=== PATIENT | male | born 1945 | race Caucasian/White ===

== ENCOUNTER 2020-03-01 19:15 | Observation (INO) | payer MEDICARE, OTHER ==
[2020-03-01] MEDS ORDERED: Sodium Chloride 0.9% 1,000 ML IV SCH (20:00)
--- NOTE | 2020-03-01 20:00 | EDM.PDOC ---
ED HPI GENERAL MEDICAL PROBLEM - General Chief Complaint: Gastrointestinal Problem Stated Complaint: BLOOD IN STOOL Time Seen by Provider: 03/01/20 19:26 Source of Information: Reports: Patient History Limitations: Reports: No Limitations - History of Present Illness INITIAL COMMENTS - FREE TEXT/NARRATIVE: Mr. Okeefe is a very pleasant 74-year-old gentleman with a past medical history significant for occasional GERD, treated with baking soda, and colon polyps, who now presents to the ED stating that he was awoken with sharp suprapubic abdominal pain last night. The pain was recurrent, lasting for about 7 to 8 minutes, then recur about every hour while he was in bed, however, he did not have any pain during the day today. When he went to lay down tonight, he again developed the same pain. He also reports that he had loose stools yesterday, although not exactly watery diarrhea. He then noticed some relatively bright blood on 2 small bowel movements tonight. No prior similar symptoms. The patient states that he underwent a colonoscopy about 1 month ago, finding colon polyps, but he does not recall being told anything about diverticuli. Here in the ED, the patient is found to be hemodynamically stable, afebrile, saturating 97% on room air. Other than the abdominal complaints, the patient denies recent fever, chills, sore throat, ear pain, nasal or sinus congestion, cough, dyspnea, chest pain, palpitations, nausea, vomiting, constipation, diarrhea, urinary symptoms, recent weight gain or weight loss, recent black bowel movements, recent joint aches, he adaches, or rashes. The patient last ate around 17:30 tonight. The patient's PCP is AJ Lopez. His colonoscopy was performed by Dr. Sam Benjamin. Abdomen Pain Score (Numeric/FACES): 2 - Related Data Allergies Allergy/AdvReac Type Severity Reaction Status Date / Time tomato Allergy Swelling Verified 03/01/20 19:36 tree nut Allergy Swelling Verified 03/01/20 19:36 berries Allergy Mouth Sores Uncoded 03/01/20 19:36 Home Meds: Home Meds . [Unable to Verify Home Med List] 03/01/20 [History] Past Medical History HEENT History: Reports: Impaired Vision (wears glasses) Cardiovascular History: Reports: High Cholesterol, Hypertension Gastrointestinal History: Reports: Colon Polyp, GERD (occasional) Musculoskeletal History: Reports: Osteoarthritis (fingers) Endocrine/Metabolic History: Reports: Other (See Below) (Prediabetes) - Past Surgical History HEENT Surgical History: Reports: Oral Surgery (wisdom teethe extraction 1972 or ) GI Surgical History: Reports: Appendectomy (1960), Colonoscopy (x 1), Other (See Below) (Hemorrhoidectomy 1961) Neurological Surgical History: Reports: Lumbar Spine (laminactomy x 2) Social & Family History - Tobacco Use Smoking Status *Q: Former Smoker Years of Tobacco use: 57 Packs/Tins Daily: 2 Month/Year Tobacco Last Used: Quit Sep 2019 - Alcohol Use Date/Time of Last Drink Comment: Alcoholic - sober since 1982 - Recreational Drug Use Recreational Drug Use: No - Living Situation & Occupation Living situation: Reports: , with Spouse 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 ED EXAM, GI/ABD - Physical Exam Exam: See Below Exam Limited By: No Limitations General Appearance: Alert, WD/WN, No Apparent Distress Eyes: Bilateral: Normal Appearance, EOMI Ears: Normal External Exam, Hearing Grossly Normal Nose: Normal Inspection Throat/Mouth: Normal Inspection, Normal Lips, Normal Voice, No Airway Compromise Head: Atraumatic, Normocephalic Neck: Normal Inspection, Full Range of Motion Respiratory/Chest: No Respiratory Distress, Lungs Clear, Normal Breath Sounds, No Accessory Muscle Use Cardiovascular: Normal Peripheral Pulses, Regular Rate, Rhythm, No Edema, No Gallop, No JVD, No Murmur, No Rub GI/Abdominal Exam: Normal Bowel Sounds, Soft, No Organomegaly, No Distention, No Abnormal Bruit, No Mass, Tender (Left side only. Nontender elsewhere, including suprapubically) (Male) Exam: Deferred Rectal (Males) Exam: Deferred Back Exam: Normal Inspection, Full Range of Motion. No: CVA Tenderness (L), CVA Tenderness (R) Extremities: Normal Inspection, Normal Range of Motion, No Pedal Edema, Normal Capillary Refill Neurological: Alert, Oriented, Normal Cognition, No Motor/Sensory Deficits Psychiatric: Normal Affect Skin Exam: Warm, Dry, Intact, Normal Color, No Rash Course - Vital Signs Last Recorded V/S: Last Vital Signs Temp 37.1 C 03/01/20 19:30 Pulse 92 03/01/20 19:30 Resp 16 03/01/20 19:30 BP 133/69 03/01/20 19:30 Pulse Ox 97 03/01/20 19:30 - Orders/Labs/Meds Orders: Active Orders 24 hr Category Date Time Status Patient Status [ADT] Routine ADT 03/01/20 22:41 Active Hemoccult [Fecal Occult Blood Collection] [RC] Care 03/01/20 20:10 Active ASDIRECTED Lactated Ringers @ 125 MLS/HR(1000ml Bag) Med 03/01/20 22:45 Ordered Lactated Ringers [Ringers, Lactated] 1,000 ml IV ASDIRECTED Levofloxacin/Dextrose 5%-Water [Levaquin in D5W 750 MG/ Med 03/01/20 22:30 Ordered 150 ML] 750 mg Premix Bag 1 bag IV ONETIME metroNIDAZOLE/Normal Saline [Flagyl 500 MG in NS 100 ML Med 03/01/20 22:32 Ordered ] 500 mg Premix Bag 1 bag IV ONETIME Medication Orders Levofloxacin/Dextrose 750 mg/ (Premix) 150 mls @ 100 mls/hr IV ONETIME STA Stop: 03/01/20 23:59 Metronidazole 500 mg/ Premix 100 mls @ 100 mls/hr IV ONETIME STA Stop: 03/01/20 23:31 Lactated Ringer's (Ringers, Lactated) 1,000 mls @ 125 mls/hr IV ASDIRECTED [facility] Labs: Laboratory Tests 03/01/20 03/01/20 Range/Units 20:00 20:00 WBC 14.55 H (4.23-9.07) K/mm3 RBC 4.32 L (4.63-6.08) M/mm3 Hgb 12.9 L (13.7-17.5) gm/dl Hct 40.1 (40.1-51.0) % MCV 92.8 H (79.0-92.2) fl MCH 29.9 (25.7-32.2) pg MCHC 32.2 (32.2-35.5) g/dl RDW Std Deviation 46.7 H (35.1-43.9) fL Plt Count 338 H (163-337) K/mm3 MPV 10.0 (9.4-12.3) fl Neutrophils % (Manual) 64 H (40-60) % Band Neutrophils % 0 (0-10) % Lymphocytes % (Manual) 27 (20-40) % Atypical Lymphs % 0 % Monocytes % (Manual) 7 (2-10) % Eosinophils % (Manual) 2 (0.8-7.0) % Basophils % (Manual) 0 L (0.2-1.2) Platelet Estimate Adequate Plt Morphology Comment Normal RBC Morph Comment Normal Sodium 140 (136-145) mEq/L Potassium 3.9 (3.5-5.1) mEq/L Chloride 103 (98-107) mEq/L Carbon Dioxide 29 (21-32) mEq/L Anion Gap 11.9 (5-15) BUN 27 H (7-18) mg/dL Creatinine 1.4 H (0.7-1.3) mg/dL Est Cr Clr Drug Dosing 51.52 mL/min Estimated GFR (MDRD) 49 (>60) mL/min BUN/Creatinine Ratio 19.3 H (14-18) Glucose 134 H (83-115) mg/dL Calcium 9.6 (8.5-10.1) mg/dL Total Bilirubin 0.3 (0.2-1.0) mg/dL AST 14 L (15-37) U/L ALT 30 (16-63) U/L Alkaline Phosphatase 70 (46-116) U/L Total Protein 7.0 (6.4-8.2) g/dl Albumin 3.2 L (3.4-5.0) g/dl Globulin 3.8 gm/dL Albumin/Globulin Ratio 0.8 L (1-2) Meds: Medications Generic Name Dose Route Start Last Admin Trade Name Freq PRN Reason Stop Dose Admin Levofloxacin/Dextrose 750 mg/ 150 mls @ 100 mls/hr 03/01/20 22:30 Premix IV 03/01/20 23:59 ONETIME STA Metronidazole 500 mg/ Premix 100 mls @ 100 mls/hr 03/01/20 22:32 IV 03/01/20 23:31 ONETIME STA Lactated Ringer's 1,000 mls @ 125 mls/hr 03/01/20 22:45 Ringers, Lactated IV ASDIRECTED CARLOS Discontinued Medications Generic Name Dose Route Start Last Admin Trade Name Freq PRN Reason Stop Dose Admin Diatrizoate Meglum/Diatrizoate Sod 40 ml 03/01/20 20:13 03/01/20 21:47 Gastrografin 37% PO 03/01/20 20:14 40 ml ONETIME ONE Administration Hydromorphone HCl 0.5 mg 03/01/20 21:26 03/01/20 21:48 Dilaudid IVPUSH 03/01/20 21:27 0.5 mg ONETIME ONE Administration Sodium Chloride 1,000 mls @ 150 mls/hr 03/01/20 20:00 03/01/20 20:05 Normal Saline IV 150 mls/hr ASDIRECTED CARLOS Administration Iopamidol 100 ml 03/01/20 21:31 03/01/20 21:47 Isovue-300 (61%) IVPUSH 03/01/20 21:32 100 ml ONETIME ONE Administration Ondansetron HCl 4 mg 03/01/20 21:27 03/01/20 21:47 Zofran IVPUSH 03/01/20 21:28 4 mg ONETIME ONE Administration - Re-Assessments/Exams Free Text/Narrative Re-Assessment/Exam: 03/01/20 19:57 As above, the patient had intermittent lower abdominal pain last night, then again tonight, along with bright red blood per rectum tonight. On abdominal exam, he has tenderness to his entire left abdomen, but is completely nontender elsewhere, including the suprapubic region. On rectal exam, he has currant-jam colored stool that is grossly heme positive. I am most concerned about ischemic colitis, although acute diverticulitis is possible as well, therefore I recommended a work-up that includes blood work and a CT of his abdomen and pelvis with oral and IV contrast. The patient agreed. In the meantime, the patient will be given IV fluid, however, he declined an offer for both pain medication and anti-nausea medicine. 03/01/20 21:27 Notified by Alondra VALENCIA that the patient requested pain medication. I have ordered Dilaudid 0.5 mg IVP plus Zofran 4 mg IVP. 03/01/20 21:31 The patient's CBC is remarkable for a WBC count elevated at 14.55, but with 0% bandemia. His Hgb is slightly depressed at 12.9, with a Hct normal at 40.1. His platelets are slightly elevated at 338,000, with the remainder of his CBC being unremarkable. His CMP is remarkable for a BUN/Cr elevated at 27/1.4, and a blood glucose mildly elevated at 134, with the remainder of his CMP being unremarkable. No prior CMP is available for comparison. 03/01/20 22:23 CT of the abdomen and pelvis with oral and IV contrast as read by Dr. Ulloa as: 1. Mild bowel wall thickening within portions of the descending and sigmoid regions having the appearance of a nonspecific colitis rather than diverticulitis. 2. Other findings believed to be nonacute as described above. 03/01/20 22:28 Test results discussed with the patient. I am concerned that the patient's colitis may be ischemic colitis. I recommended broad spectrum IV antibiotics, IV fluids, and placement into observation. The Hospitalist can then consider consulting the surgeon in the morning. The patient agreed. I will therefore start him on IV levofloxacin and IV metronidazole. I will write bridge orders. Departure - Departure Time of Disposition: 22:29 Disposition: Refer to Observation Condition: Good Clinical Impression: Colitis, Renal insufficiency - Discharge Information *PRESCRIPTION DRUG MONITORING PROGRAM REVIEWED*: Not Applicable *COPY OF PRESCRIPTION DRUG MONITORING REPORT IN PATIENT ROE: Not Applicable Referrals: Beverley Evangelista PA-C [Primary Care Provider] - Sam Benjamin MD [Physician] - Forms: ED Department Discharge Sepsis Event Note (ED) - Evaluation Sepsis Screening Result: No Definite Risk - Focused Exam Vital Signs: Vital Signs Temp Pulse Resp BP Pulse Ox 03/01/20 19:30 37.1 C 92 16 133/69 97 - My Orders Last 24 Hours: My Active Orders 03/01/20 20:10 Hemoccult [Fecal Occult Blood Collection] [RC] ASDIRECTED 03/01/20 22:30 Levofloxacin/Dextrose 5%-Water [Levaquin in D5W 750 MG/150 ML] 750 mg Premix Bag 1 bag IV ONETIME 03/01/20 22:32 metroNIDAZOLE/Normal Saline [Flagyl 500 MG in NS 100 ML] 500 mg Premix Bag 1 bag IV ONETIME 03/01/20 22:41 Patient Status [ADT] Routine 03/01/20 22:45 Lactated Ringers @ 125 MLS/HR(1000ml Bag) Lactated Ringers [Ringers, Lactated] 1,000 ml IV ASDIRECTED - Assessment/Plan Last 24 Hours: My Active Orders 03/01/20 20:10 Hemoccult [Fecal Occult Blood Collection] [RC] ASDIRECTED 03/01/20 22:30 Levofloxacin/Dextrose 5%-Water [Levaquin in D5W 750 MG/150 ML] 750 mg Premix Bag 1 bag IV ONETIME 03/01/20 22:32 metroNIDAZOLE/Normal Saline [Flagyl 500 MG in NS 100 ML] 500 mg Premix Bag 1 bag IV ONETIME 03/01/20 22:41 Patient Status [ADT] Routine 03/01/20 22:45 Lactated Ringers @ 125 MLS/HR(1000ml Bag) Lactated Ringers [Ringers, Lactated] 1,000 ml IV ASDIRECTED
[2020-03-01] MEDS ORDERED: Diatrizoate Meglumine/Diatrizoate Sodium 37% 120 ML Bottle PO ONE (20:13)
[2020-03-01] MEDS ORDERED: HYDROmorphone 0.5 MG/0.5 ML Syringe IVPUSH ONE (21:26)
[2020-03-01] MEDS ORDERED: Ondansetron 4 MG/2 ML SDV IVPUSH ONE (21:27)
[2020-03-01] MEDS ORDERED: Iopamidol 612 MG/ML 100 ML Bottle IVPUSH ONE (21:31)
--- NOTE | 2020-03-01 22:06 | CT ---
CT abdomen and pelvis Technique: Multiple axial sections were obtained from above the dome of the diaphragm inferiorly to the pubic symphysis. Intravenous and oral contrast was utilized. Reconstructed coronal and sagittal images were obtained. Delayed images were also obtained through the pelvis. Findings: Bowel wall thickening is seen within the sigmoid and portions of the descending colon. Findings have the appearance of a colitis rather than definite diverticulitis. Visualized lung bases show nothing acute. Small hiatal hernia is seen. Liver contains no focal abnormality. Gallbladder contains no calcified gallstones. Spleen appears normal. Adrenal glands show no nodule. Kidneys show symmetric contrast enhancement without hydronephrosis or mass. Very minimal cortical lesion is seen within the upper right kidney which is too small to characterize by Hounsfield measurements but most likely represents a minimal cyst. Pancreas appears within normal limits. Aorta shows mild atherosclerotic calcification without aneurysm. No retroperitoneal adenopathy or mesenteric abnormalities are seen. Appendix is not visualized with certainty. No free fluid or inflammatory change is seen. Small bilateral fat-containing inguinal hernias are noted. Delayed images shows contrast within the distal ureters as well as within the bladder. 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 Other mild scattered degenerative change seen throughout other portions of the spine. Impression: 1. Mild bowel wall thickening within portions of the descending and sigmoid regions having the appearance of a nonspecific colitis rather than diverticulitis. 2. Other findings believed to be nonacute as described above. Diagnostic code #3 Study was dictated in MDT
[2020-03-01] MEDS ORDERED: Levofloxacin/Dextrose 5%-Water 750 MG in Premix Bag 1 BAG IV STA (22:30)
[2020-03-01] MEDS ORDERED: metroNIDAZOLE/Normal Saline 500 MG in Premix Bag 1 BAG IV STA (22:32)
[2020-03-01] MEDS ORDERED: Ondansetron 4 MG/2 ML SDV IVPUSH PRN (23:43)
[2020-03-01] MEDS ORDERED: HYDROmorphone 0.5 MG/0.5 ML Syringe IVPUSH PRN (23:47)
[2020-03-02] MEDS: Lactated Ringers 1,000 ML IV SCH ×2 (00:07→11:01)
[2020-03-02] MEDS ORDERED: metroNIDAZOLE/Normal Saline 500 MG in Premix Bag 1 BAG IV SCH (08:00)
--- NOTE | 2020-03-02 09:02 | PCM.HP.2 ---
H&P History of Present Illness - General Date of Service: 03/02/20 Admit Problem/Dx: Admission Diagnosis/Problem Admission Diagnosis/Problem Colitis Source of Information: Patient, Old Records, Provider, RN, RN Notes Reviewed History Limitations: Reports: No Limitations - History of Present Illness Initial Comments - Free Text/Narative: Lawrence Okeefe is a 74 yo male who presented to our ED on 03/01/2020 with complaints of blood in his stool. Per his report he woke with sudden suprapubic abdominal pain which would last 7 to 8 minutes, then resolve. It would then recur about an hour later. This resolved during the day and returned again at bedtime. He reports loose stools with some bright red blood on 2 small bowel movements. No prior similar symptoms. Reports he had a colonoscopy about 1 month prior with colon polyps but does not recall anything abnormal or any diverticuli. Has any recent fever, chills, sore throat, eye or ear pain, cough, dyspnea, chest pain, palpitations, nausea, vomiting, constipation, diarrhea, urinary symptoms, recent weight gain or loss, melena, achy joints, headaches, or rashes. In the ED he was afebrile with a pulse of 92, respirations 16, blood pressure 133/69, pulse ox 97%. Labs were obtained showing mild leukocytosis but no bandemia. Hemoglobin is only slightly low at 12.9. He was noted to have tenderness to his left abdomen. Rectal exam was performed showing current jam colored stool that was grossly heme positive. Was given Dilaudid for pain and Zofran for nausea. He of the abdomen and pelvis is obtained and interpreted by Dr. Preciado as "1. Mild bowel wall thickening within portions the descending and sigmoid regions having the appearance of a nonspecific colitis rather than diverticulitis. 2. Other findings believed to be nonacute as described abov3. On IV Levaquin and metronidazole and admitted to the hospital floor. He carries a history of HLD, HTN, occasional GERD, colon polyps, osteoarthritis , "pre-diabetes", history of ETOH abuse - sober since 1982. He is a former smoker who quit in September 2019. He subsequently admitted to the medical floor observation status for management of his colitis. His PCP is JOAO Lopez. Abdomen Pain Score (Numeric/FACES): 2 - Related Data Allergies/Adverse Reactions: Allergies Allergy/AdvReac Type Severity Reaction Status Date / Time tomato Allergy Swelling Verified 03/01/20 19:36 tree nut Allergy Swelling Verified 03/01/20 23:11 berries Allergy Mouth Sores Uncoded 03/01/20 19:36 Home Medications: Home Meds Ascorbic Acid [Vitamin C] 1,000 mg PO DAILY 03/01/20 [History] Cetirizine HCl/Pseudoephedrine [Zyrtec-D Tablet] 1 tab PO BID 03/01/20 [History] Tamsulosin HCl [Flomax] 0.4 mg PO DAILY 03/01/20 [History] Orphenadrine [Norflex] 100 mg PO BID 03/02/20 [History] Simvastatin 5 mg PO DAILY 03/02/20 [History] amLODIPine [Norvasc] 10 mg PO DAILY 03/02/20 [History] metFORMIN HCl [Metformin HCl ER] 1,000 mg PO DAILY 03/02/20 [History] Past Medical History HEENT History: Reports: Impaired Vision Cardiovascular History: Reports: High Cholesterol, Hypertension Gastrointestinal History: Reports: Colon Polyp, GERD, Hemorrhoids Other Genitourinary History: Urinary Retention. Musculoskeletal History: Reports: Osteoarthritis Other Musculoskeletal History: Back Surgery: cyst removal and bone spur X1 week ago. Open sciatic area by nerve. Endocrine/Metabolic History: Reports: Other (See Below) Other Endocrine/Metabolic History: Prediabetes. Other Dermatologic History: Upper back previous removal site in grown hair. - Past Surgical History HEENT Surgical History: Reports: Oral Surgery Other HEENT Surgeries/Procedures: Saliva gland removed on right side. 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 Denies: Fever, Chills, Malaise, Weakness, Fatigue HEENT: Reports: No Symptoms. Denies: Headaches, Sore Throat Pulmonary: Reports: No Symptoms. Denies: Shortness of Breath, Wheezing, Pleuritic Chest Pain, Cough, Sputum Cardiovascular: Reports: No Symptoms. Denies: Chest Pain, Palpitations, Dyspnea on Exertion, Edema Gastrointestinal: Reports: Abdominal Pain (Left sided ), Bloody Stool, Vomiting (overnight ). Denies: Black Stool, Constipation, Diarrhea, Nausea Genitourinary: Reports: No Symptoms. Denies: Pain Musculoskeletal: Reports: Joint Pain Skin: Reports: Wound (Bilateral abrasions on knees - worse on left with scab over wound. ). Denies: Cyanosis Psychiatric: Reports: No Symptoms. Denies: Confusion Neurological: Reports: No Symptoms. Denies: Difficulty Walking, Gait Disturbance Hematologic/Lymphatic: Reports: No Symptoms Immunologic: Reports: No Symptoms Exam - Exam Exam: See Below - Vital Signs Vital Signs: Last Vital Signs Temp 98.2 F 03/02/20 08:11 Pulse 78 03/02/20 08:11 Resp 20 03/02/20 08:11 BP 145/80 H 03/02/20 08:11 Pulse Ox 96 03/02/20 08:11 Weight: 216 lb 12.8 oz - Exam Quality Assessment: DVT Prophylaxis General: Alert, Oriented, Cooperative. No: Mild Distress HEENT: Conjunctiva Clear, EACs Clear, Mucosa Moist & [place] Neck: Supple, Trachea Midline Lungs: Clear to Auscultation, Normal Respiratory Effort Cardiovascular: Regular Rate, Regular Rhythm GI/Abdominal Exam: Normal Bowel Sounds, Soft, No Organomegaly, No Distention, Rebound, Tender (On left upper and lower quadrants ) (Male) Exam: Deferred Rectal (Males) Exam: Deferred, Other (Heme positive rectal exam in ED ) Back Exam: Normal Inspection, Full Range of Motion Extremities: Normal Range of Motion, Non-Tender, No Pedal Edema, Normal Capillary Refill, Other (Bilateral abrasions on knees. Scab on left knee with no signs of inflammation. ) Skin: Warm, Dry, Intact Neurological: Cranial Nerves Intact (Grossly ) Neuro Extensive - Mental Status: Alert, Oriented x3 - Patient Data Lab Results Last 24 hrs: Laboratory Results - last 24 hr 03/01/20 03/01/20 03/02/20 Range/Units 20:00 20:00 05:12 WBC 14.55 H 11.23 H (4.23-9.07) K/mm3 RBC 4.32 L 4.36 L (4.63-6.08) M/mm3 Hgb 12.9 L 13.0 L (13.7-17.5) gm/dl Hct 40.1 40.6 (40.1-51.0) % MCV 92.8 H 93.1 H (79.0-92.2) fl MCH 29.9 29.8 (25.7-32.2) pg MCHC 32.2 32.0 L (32.2-35.5) g/dl RDW Std Deviation 46.7 H 47.0 H (35.1-43.9) fL Plt Count 338 H 304 (163-337) K/mm3 MPV 10.0 10.5 (9.4-12.3) fl Neut % (Auto) 56.9 (34.0-67.9) % Lymph % (Auto) 27.8 (21.8-53.1) % [place] % (Auto) 12.3 H (5.3-12.2) % Eos % (Auto) 2.4 (0.8-7.0) Baso % (Auto) 0.4 (0.1-1.2) % Neut # (Auto) 6.40 H (1.78-5.38) K/mm3 Lymph # (Auto) 3.12 (1.32-3.57) K/mm3 [place] # (Auto) 1.38 H (0.30-0.82) K/mm3 Eos # (Auto) 0.27 (0.04-0.54) K/mm3 Baso # (Auto) 0.04 (0.01-0.08) K/mm3 Neutrophils % (Manual) 64 H (40-60) % Band Neutrophils % 0 (0-10) % Lymphocytes % (Manual) 27 (20-40) % Atypical Lymphs % 0 % Monocytes % (Manual) 7 (2-10) % Eosinophils % (Manual) 2 (0.8-7.0) % Basophils % (Manual) 0 L (0.2-1.2) Manual Slide Review Not Reportable Platelet Estimate Adequate Plt Morphology Comment Normal RBC Morph Comment Normal Sodium 140 (136-145) mEq/L Potassium 3.9 (3.5-5.1) mEq/L Chloride 103 (98-107) mEq/L Carbon Dioxide 29 (21-32) mEq/L Anion Gap 11.9 (5-15) BUN 27 H (7-18) mg/dL Creatinine 1.4 H (0.7-1.3) mg/dL Est Cr Clr Drug Dosing 51.52 mL/min Estimated GFR (MDRD) 49 (>60) mL/min BUN/Creatinine Ratio 19.3 H (14-18) Glucose 134 H (83-115) mg/dL Calcium 9.6 (8.5-10.1) mg/dL Total Bilirubin 0.3 (0.2-1.0) mg/dL AST 14 L (15-37) U/L ALT 30 (16-63) U/L Alkaline Phosphatase 70 (46-116) U/L Total Protein 7.0 (6.4-8.2) g/dl Albumin 3.2 L (3.4-5.0) g/dl Globulin 3.8 gm/dL Albumin/Globulin Ratio 0.8 L (1-2) / Range/Units 05:12 WBC (4.23-9.07) K/mm3 RBC (4.63-6.08) M/mm3 Hgb (13.7-17.5) gm/dl Hct (40.1-51.0) % MCV (79.0-92.2) fl MCH (25.7-32.2) pg MCHC (32.2-35.5) g/dl RDW Std Deviation (35.1-43.9) fL Plt Count (163-337) K/mm3 MPV (9.4-12.3) fl Neut % (Auto) (34.0-67.9) % Lymph % (Auto) (21.8-53.1) % [place] % (Auto) (5.3-12.2) % Eos % (Auto) (0.8-7.0) Baso % (Auto) (0.1-1.2) % Neut # (Auto) (1.78-5.38) K/mm3 Lymph # (Auto) (1.32-3.57) K/mm3 [place] # (Auto) (0.30-0.82) K/mm3 Eos # (Auto) (0.04-0.54) K/mm3 Baso # (Auto) (0.01-0.08) K/mm3 Neutrophils % (Manual) (40-60) % Band Neutrophils % (0-10) % Lymphocytes % (Manual) (20-40) % Atypical Lymphs % % Monocytes % (Manual) (2-10) % Eosinophils % (Manual) (0.8-7.0) % Basophils % (Manual) (0.2-1.2) Manual Slide Review Platelet Estimate Plt Morphology Comment RBC Morph Comment Sodium 141 (136-145) mEq/L Potassium 4.0 (3.5-5.1) mEq/L Chloride 106 (98-107) mEq/L Carbon Dioxide 27 (21-32) mEq/L Anion Gap 12.0 (5-15) BUN 23 H (7-18) mg/dL Creatinine 1.1 (0.7-1.3) mg/dL Est Cr Clr Drug Dosing 65.57 mL/min Estimated GFR (MDRD) > 60 (>60) mL/min BUN/Creatinine Ratio 20.9 H (14-18) Glucose 97 (83-115) mg/dL Calcium 8.9 (8.5-10.1) mg/dL Total Bilirubin (0.2-1.0) mg/dL AST (15-37) U/L ALT (16-63) U/L Alkaline Phosphatase (46-116) U/L Total Protein (6.4-8.2) g/dl Albumin (3.4-5.0) g/dl Globulin gm/dL Albumin/Globulin Ratio (1-2) Result Diagrams: 03/02/20 05:12 03/02/20 05:12 Sepsis Event Note - Evaluation Sepsis Screening Result: No Definite Risk - Focused Exam Vital Signs: Vital Signs Temp Pulse Pulse Resp BP BP Pulse Ox 03/02/20 08:11 98.2 F 78 20 145/80 H 96 03/02/20 04:24 97.9 F 76 16 148/75 H 94 L 03/01/20 23:12 98.1 F 83 16 150/87 H 97 03/01/20 23:09 77 14 124/67 95 Date Exam was Performed: 03/02/20 Time Exam was Performed: 10:35 - Problem List (1) HLD (hyperlipidemia) SNOMED Code(s): 10062274 ICD Code: E78.5 - HYPERLIPIDEMIA, UNSPECIFIED Status: Chronic Priority: Low Current Visit: No Qualifiers: Hyperlipidemia type: unspecified Qualified Code(s): E78.5 - Hyperlipidemia , unspecified (2) HTN (hypertension) SNOMED Code(s): 61488371 ICD Code: I10 - ESSENTIAL (PRIMARY) HYPERTENSION Status: Chronic Priority : Medium Current Visit: No Qualifiers: Hypertension type: unspecified Qualified Code(s): I10 - Essential (primary ) hypertension (3) History of colon polyps SNOMED Code(s): 043615422 ICD Code: Z86.010 - PERSONAL HISTORY OF COLONIC POLYPS Status: Chronic Priority: Low Current Visit: No (4) GERD (gastroesophageal reflux disease) SNOMED Code(s): 908749077 ICD Code: K21.9 - GASTRO-ESOPHAGEAL REFLUX DISEASE WITHOUT ESOPHAGITIS Status: Chronic Priority: Medium Current Visit: No Qualifiers: Esophagitis presence: esophagitis presence not specified Qualified Code(s) : K21.9 - Gastro-esophageal reflux disease without esophagitis (5) Osteoarthritis SNOMED Code(s): 272855696 ICD Code: M19.90 - UNSPECIFIED OSTEOARTHRITIS, UNSPECIFIED SITE Status: Chronic Priority: Low Current Visit: No Qualifiers: Osteoarthritis location: hand Osteoarthritis type: primary Laterality: unspecified laterality Qualified Code(s): M19.049 - Primary osteoarthritis, unspecified hand (6) History of prediabetes SNOMED Code(s): 170788739, 913504024 ICD Code: Z87.898 - PERSONAL HISTORY OF OTHER SPECIFIED CONDITIONS Status: Chronic Priority: Low Current Visit: No (7) Former smoker SNOMED Code(s): 9477764 ICD Code: Z87.891 - PERSONAL HISTORY OF NICOTINE DEPENDENCE Status: Chronic Priority: Low Current Visit: No (8) History of alcohol abuse SNOMED Code(s): 514607983 ICD Code: F10.11 - ALCOHOL ABUSE, IN REMISSION Status: Chronic Priority: Low Current Visit: No (9) Colitis SNOMED Code(s): 52203891 ICD Code: K52.9 - NONINFECTIVE GASTROENTERITIS AND COLITIS, UNSPECIFIED Status: Acute Priority: High Current Visit: Yes (10) Renal insufficiency SNOMED Code(s): 493214290, 922360265 ICD Code: N28.9 - DISORDER OF KIDNEY AND URETER, UNSPECIFIED Status: Acute Priority: High Current Visit: Yes (11) Abdominal pain SNOMED Code(s): 74821376 ICD Code: R10.9 - UNSPECIFIED ABDOMINAL PAIN Status: Acute Priority: High Current Visit: Yes Qualifiers: Abdominal location: unspecified location Qualified Code(s): R10.9 - Unspecified abdominal pain Problem List Initiated/Reviewed/Updated: Yes Orders Last 24hrs: Active Orders 24 hr Category Date Time Status Patient Status [ADT] Routine ADT 03/01/20 22:41 Active Hemoccult [Fecal Occult Blood Collection] [RC] Care 03/01/20 20:10 Active ASDIRECTED Up With Assistance [RC] Q12HR Care 03/01/20 23:49 Active Clear Liquid Diet [DIET] Diet 03/02/20 Breakfast Active HYDROmorphone [Dilaudid] Med 03/01/20 23:47 Active 0.5 mg IVPUSH Q2H PRN Lactated Ringers [Ringers, Lactated] 1,000 ml Med 03/01/20 22:45 Active IV ASDIRECTED Levofloxacin/Dextrose 5%-Water [Levaquin in D5W 750 MG/ Med 03/02/20 21:00 Active 150 ML] 750 mg Premix Bag 1 bag IV Q24H Ondansetron [Zofran] Med 03/01/20 23:43 Active 4 mg IVPUSH Q8H PRN metroNIDAZOLE/Normal Saline [Flagyl 500 MG in NS 100 ML Med 03/02/20 08:00 Active ] 500 mg Premix Bag 1 bag IV Q8H Code Status [Resuscitation Status] Routine Resus Stat 03/01/20 23:49 Ordered Medication Orders Hydromorphone HCl (Dilaudid) 0.5 mg IVPUSH Q2H PRN PRN Reason: Pain Lactated Ringer's (Ringers, Lactated) 1,000 mls @ 125 mls/hr IV ASDIRECTED CARLOS Last Admin: 03/02/20 00:07 Dose: 125 mls/hr Levofloxacin/Dextrose 750 mg/ (Premix) 150 mls @ 100 mls/hr IV Q24H CARLOS Metronidazole 500 mg/ Premix 100 mls @ 100 mls/hr IV Q8H CARLOS Ondansetron HCl (Zofran) 4 mg IVPUSH Q8H PRN PRN Reason: n/v Assessment/Plan Comment:: Day of admission: - Presented to ED on 03/01/20 with several days of nocturnal abdominal pain that comes and goes - Reports BRBPR and soft stools - Reported current jelly like stool that is grossly heme positive in ED on rectal exam - Last colonoscopy: [address] Benjamin - reported polyps but no diverticula or other concerns - History of hemorrhoidectomy in 1960s - No recent NSAID use - AB/Pelvis CT: Mild bowel wall thickening within portions of descending and sigmoid regions. Appears nonspecific colitis rather than diverticulitis. - Labs: -WBC: 14.55-->11.23 -No bandemia -Hgb/Hct: 12.9/40.1--> 13.0/40.6 -Plt: 338-->304 -BUN 27-->23 -Creatinine 1.4-->1.1 -eGFR 49--> Greater than 60 -Glucose 134-->97 - Started on Levaquin and Flagyl in ED - IV fluids started in ED - LUQ and LLQ tenderness in ED - No suprapubic tenderness Abdominal Pain Colitis GERD (gastroesophageal reflux disease) History of colon polyps PLAN - Continue Levaquin and Flagyl - Clear liquid diet - Obtain old records from colonoscopy including any pathology - GS consult - Dr. Rivera - Lipid panel - UA ordered Renal insufficiency PLAN - Avoid nephrotoxic medications - IV fluids as ordered - Follow labs HLD (hyperlipidemia) HTN (hypertension) Osteoarthritis History of prediabetes On home Norvasc, Norflex, simvastatin, Flomax, Metformin PLAN - Hold metformin - Continue Norvasc, Norflex, Simvastatin, Flomax - Obtain lipid panel as above Former smoker History of alcohol abuse Former smoker who quite September 2019; Former ETOH abuse - sober since 1982 PLAN -No concerns at this time DVT Prophylaxis: SCDs - Pharmacological contraindicated due to bleeding GI prophylaxis: Not indicated Code status: Full code PCP: Beverley Evangelista PA-C Social: Lives with in town Disposition: Patient admitted observation status from ED for management of non- specific colitis, surgical consult and IV Abx. Likely discharge in next 24-48 hours. - Mortality Measure Prognosis:: Good
[2020-03-02] MEDS ORDERED: Acetaminophen 325 MG Tab PO PRN (09:17)
[2020-03-02] MEDS ORDERED: amLODIPine 10 MG Tab PO SCH (11:45)
--- NOTE | 2020-03-02 12:31 | PCM.CONS ---
H&P History of Present Illness - General Date of Service: 03/02/20 Admit Problem/Dx: Admission Diagnosis/Problem Admission Diagnosis/Problem Colitis Source of Information: Patient, Provider History Limitations: Reports: No Limitations - History of Present Illness Other HPI/Comments: Mr. Okeefe is a relatively healthy 74 yo man who developed acute onset severe lower abdominal pain about 48 hours ago. He has never had such pain. He has associated nausea, vomiting, and diarrhea. He described some bright red blood with BM two days ago, but lately he denies any blood, just watery diarrhea. He was admitted to the hospital from the emergency room last night. IV antibiotics , levofloxacin and metronidazole, were started, and today the patient's WBC is down from about 14 to 11. He feels better and is tolerating a diet. The patient had a recent hospitalization within the past month for back surgery. He also had a colonoscopy about a month ago which, aside from a few benign polyps, was reportedly unremarkable. He has a CT scan from yesterday showing bowel wall thickening of the descending and sigmoid colon. There is evidence of diverticular disease as well. No associated findings of abscess or pneumoperitoneum. The patient has no significant history of cardiovascular or atherosclerotic disease. Abdomen Pain Score (Numeric/FACES): 2 - Related Data Allergies/Adverse Reactions: Allergies Allergy/AdvReac Type Severity Reaction Status Date / Time tomato Allergy Swelling Verified 03/01/20 19:36 tree nut Allergy Swelling Verified 03/01/20 23:11 berries Allergy Mouth Sores Uncoded 03/01/20 19:36 Home Medications: Home Meds Ascorbic Acid [Vitamin C] 1,000 mg PO DAILY 03/01/20 [History] Cetirizine HCl/Pseudoephedrine [Zyrtec-D Tablet] 1 tab PO BID 03/01/20 [History] Tamsulosin HCl [Flomax] 0.4 mg PO DAILY 03/01/20 [History] Orphenadrine [Norflex] 100 mg PO BID 03/02/20 [History] Simvastatin 5 mg PO DAILY 03/02/20 [History] amLODIPine [Norvasc] 10 mg PO DAILY 03/02/20 [History] metFORMIN HCl [Metformin HCl ER] 1,000 mg PO DAILY 03/02/20 [History] Past Medical History HEENT History: Reports: Impaired Vision Cardiovascular History: Reports: High Cholesterol, Hypertension Gastrointestinal History: Reports: Colon Polyp, GERD, Hemorrhoids Other Genitourinary History: Urinary Retention. Musculoskeletal History: Reports: Osteoarthritis Other Musculoskeletal History: Back Surgery: cyst removal and bone spur X1 week ago. Open sciatic area by nerve. Endocrine/Metabolic History: Reports: Other (See Below) Other Endocrine/Metabolic History: Prediabetes. Other Dermatologic History: Upper back previous removal site in grown hair. - Past Surgical History HEENT Surgical History: Reports: Oral Surgery Other HEENT Surgeries/Procedures: Saliva gland removed on right side. 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[employer]) H&P Review of Systems - Review of Systems: Review Of Systems: See Below General: Reports: Malaise HEENT: Reports: No Symptoms Pulmonary: Reports: No Symptoms Gastrointestinal: Reports: Abdominal Pain, Diarrhea, Nausea Genitourinary: Reports: No Symptoms Musculoskeletal: Reports: No Symptoms Skin: Reports: No Symptoms Exam - Exam Exam: See Below - Vital Signs Vital Signs: Last Vital Signs Temp 36.8 C 03/02/20 08:11 Pulse 78 03/02/20 08:11 Resp 20 03/02/20 08:11 BP 145/80 H 03/02/20 08:11 Pulse Ox 96 03/02/20 09:18 Weight: 98.339 kg - Exam General: Alert, Oriented, Cooperative HEENT: Conjunctiva Clear Neck: Supple Lungs: Normal Respiratory Effort Cardiovascular: Regular Rate GI/Abdominal Exam: Soft, No Distention, No Mass, Other (minor left lower quadrant tenderness) Rectal (Males) Exam: Deferred Extremities: Normal Inspection Skin: Warm, Dry Psychiatric: Normal Mood - Patient Data Lab Results Last 24 hrs: Laboratory Results - last 24 hr 03/01/20 03/01/20 03/02/20 Range/Units 20:00 20:00 05:12 WBC 14.55 H 11.23 H (4.23-9.07) K/mm3 RBC 4.32 L 4.36 L (4.63-6.08) M/mm3 Hgb 12.9 L 13.0 L (13.7-17.5) gm/dl Hct 40.1 40.6 (40.1-51.0) % MCV 92.8 H 93.1 H (79.0-92.2) fl MCH 29.9 29.8 (25.7-32.2) pg MCHC 32.2 32.0 L (32.2-35.5) g/dl RDW Std Deviation 46.7 H 47.0 H (35.1-43.9) fL Plt Count 338 H 304 (163-337) K/mm3 MPV 10.0 10.5 (9.4-12.3) fl Neut % (Auto) 56.9 (34.0-67.9) % Lymph % (Auto) 27.8 (21.8-53.1) % [place] % (Auto) 12.3 H (5.3-12.2) % Eos % (Auto) 2.4 (0.8-7.0) Baso % (Auto) 0.4 (0.1-1.2) % Neut # (Auto) 6.40 H (1.78-5.38) K/mm3 Lymph # (Auto) 3.12 (1.32-3.57) K/mm3 [place] # (Auto) 1.38 H (0.30-0.82) K/mm3 Eos # (Auto) 0.27 (0.04-0.54) K/mm3 Baso # (Auto) 0.04 (0.01-0.08) K/mm3 Neutrophils % (Manual) 64 H (40-60) % Band Neutrophils % 0 (0-10) % Lymphocytes % (Manual) 27 (20-40) % Atypical Lymphs % 0 % Monocytes % (Manual) 7 (2-10) % Eosinophils % (Manual) 2 (0.8-7.0) % Basophils % (Manual) 0 L (0.2-1.2) Manual Slide Review Not Reportable Platelet Estimate Adequate Plt Morphology Comment Normal RBC Morph Comment Normal Sodium 140 (136-145) mEq/L Potassium 3.9 (3.5-5.1) mEq/L Chloride 103 (98-107) mEq/L Carbon Dioxide 29 (21-32) mEq/L Anion Gap 11.9 (5-15) BUN 27 H (7-18) mg/dL Creatinine 1.4 H (0.7-1.3) mg/dL Est Cr Clr Drug Dosing 51.52 mL/min Estimated GFR (MDRD) 49 (>60) mL/min BUN/Creatinine Ratio 19.3 H (14-18) Glucose 134 H (83-115) mg/dL Calcium 9.6 (8.5-10.1) mg/dL Phosphorus (2.6-4.7) mg/dL Magnesium (1.8-2.4) mg/dl Total Bilirubin 0.3 (0.2-1.0) mg/dL AST 14 L (15-37) U/L ALT 30 (16-63) U/L Alkaline Phosphatase 70 (46-116) U/L Total Protein 7.0 (6.4-8.2) g/dl Albumin 3.2 L (3.4-5.0) g/dl Globulin 3.8 gm/dL Albumin/Globulin Ratio 0.8 L (1-2) Triglycerides (<150) mg/dL Cholesterol (<200) mg/dL LDL Cholesterol Direct (<100) mg/dL HDL Cholesterol (40-59) mg/dL 03/02/20 03/02/20 03/02/20 Range/Units 05:12 05:12 05:12 WBC (4.23-9.07) K/mm3 RBC (4.63-6.08) M/mm3 Hgb (13.7-17.5) gm/dl Hct (40.1-51.0) % MCV (79.0-92.2) fl MCH (25.7-32.2) pg MCHC (32.2-35.5) g/dl RDW Std Deviation (35.1-43.9) fL Plt Count (163-337) K/mm3 MPV (9.4-12.3) fl Neut % (Auto) (34.0-67.9) % Lymph % (Auto) (21.8-53.1) % [place] % (Auto) (5.3-12.2) % Eos % (Auto) (0.8-7.0) Baso % (Auto) (0.1-1.2) % Neut # (Auto) (1.78-5.38) K/mm3 Lymph # (Auto) (1.32-3.57) K/mm3 [place] # (Auto) (0.30-0.82) K/mm3 Eos # (Auto) (0.04-0.54) K/mm3 Baso # (Auto) (0.01-0.08) K/mm3 Neutrophils % (Manual) (40-60) % Band Neutrophils % (0-10) % Lymphocytes % (Manual) (20-40) % Atypical Lymphs % % Monocytes % (Manual) (2-10) % Eosinophils % (Manual) (0.8-7.0) % Basophils % (Manual) (0.2-1.2) Manual Slide Review Platelet Estimate Plt Morphology Comment RBC Morph Comment Sodium 141 (136-145) mEq/L Potassium 4.0 (3.5-5.1) mEq/L Chloride 106 (98-107) mEq/L Carbon Dioxide 27 (21-32) mEq/L Anion Gap 12.0 (5-15) BUN 23 H (7-18) mg/dL Creatinine 1.1 (0.7-1.3) mg/dL Est Cr Clr Drug Dosing 65.57 mL/min Estimated GFR (MDRD) > 60 (>60) mL/min BUN/Creatinine Ratio 20.9 H (14-18) Glucose 97 (83-115) mg/dL Calcium 8.9 (8.5-10.1) mg/dL Phosphorus 3.7 (2.6-4.7) mg/dL Magnesium 1.8 (1.8-2.4) mg/dl Total Bilirubin (0.2-1.0) mg/dL AST (15-37) U/L ALT (16-63) U/L Alkaline Phosphatase (46-116) U/L Total Protein (6.4-8.2) g/dl Albumin (3.4-5.0) g/dl Globulin gm/dL Albumin/Globulin Ratio (1-2) Triglycerides 60 (<150) mg/dL Cholesterol 144 (<200) mg/dL LDL Cholesterol Direct 77 (<100) mg/dL HDL Cholesterol 53.0 (40-59) mg/dL Result Diagrams: 03/02/20 05:12 03/02/20 05:12 Sepsis Event Note - Evaluation Sepsis Screening Result: No Definite Risk - Focused Exam Vital Signs: Vital Signs Temp Pulse Resp BP Pulse Ox Pulse Ox 03/02/20 09:18 96 03/02/20 08:11 36.8 C 78 20 145/80 H 96 03/02/20 04:24 36.6 C 76 16 148/75 H 94 L Date Exam was Performed: 03/02/20 Time Exam was Performed: 12:26 *Q Meaningful Use (ADM) - VTE Risk Assess *Q Each Risk Factor Represents 3 Points: Age 75 Years or Greater Total Score 3 Point Risk Factors: 3 Consult PN Assessment/Plan Problem List Initiated/Reviewed/Updated: Yes Plan: Findings seem most likely due to uncomplicated diverticulitis, though differential includes infectious colitis (C difficile) given recent elective surgery and ischemic colitis. Recommend C diff toxin assay to rule out C difficile colitis. Otherwise, I agree with current management and feel the patient would be appropriate for discharge if he continues to feel better after switching to an oral antibiotic regimen. Requesting Provider: Tej Consult Requested: 03/02/20 Reason for Consult: abdominal pain/ colitis Patient History Reviewed: Yes Admission H&P Reviewed: Yes Consult Result/Summary:: rule out C difficile colitis, continue antibiotic treatment for presumed uncomplicated diverticulitis. Notified Requestor: Yes
--- NOTE | 2020-03-02 14:17 | PCM.DCSUM1 ---
Discharge Summary - Hospital Course HPI Initial Comments: Lawrence Okeefe is a 74 yo male who presented to our ED on 03/01/2020 with complaints of blood in his stool. Per his report he woke with sudden suprapubic abdominal pain which would last 7 to 8 minutes, then resolve. It would then recur about an hour later. This resolved during the day and returned again at bedtime. He reports loose stools with some bright red blood on 2 small bowel movements. No prior similar symptoms. Reports he had a colonoscopy about 1 month prior with colon polyps but does not recall anything abnormal or any diverticuli. Has any recent fever, chills, sore throat, eye or ear pain, cough, dyspnea, chest pain, palpitations, nausea, vomiting, constipation, diarrhea, urinary symptoms, recent weight gain or loss, melena, achy joints, headaches, or rashes. In the ED he was afebrile with a pulse of 92, respirations 16, blood pressure 133/69, pulse ox 97%. Labs were obtained showing mild leukocytosis but no bandemia. Hemoglobin is only slightly low at 12.9. He was noted to have tenderness to his left abdomen. Rectal exam was performed showing current jam colored stool that was grossly heme positive. Was given Dilaudid for pain and Zofran for nausea. He of the abdomen and pelvis is obtained and interpreted by Dr. Preciado as "1. Mild bowel wall thickening within portions the descending and sigmoid regions having the appearance of a nonspecific colitis rather than diverticulitis. 2. Other findings believed to be nonacute as described abov3. On IV Levaquin and metronidazole and admitted to the hospital floor. He carries a history of HLD, HTN, occasional GERD, colon polyps, osteoarthritis, "pre-diabetes", history of ETOH abuse - sober since 1982. He is a former smoker who quit in September 2019. He subsequently admitted to the medical floor observation status for management of his colitis. His PCP is JOAO Lopez. Diagnosis: Stroke: No - Discharge Data Discharge Date: 03/02/20 (Admit date: 03/01/20) Discharge Disposition: Home, Self-Care 01 Condition: Good - Referral to Home Health Primary Care Physician: AJ Gardenr - Discharge Diagnosis/Problem(s) (1) HLD (hyperlipidemia) SNOMED Code(s): 48975903 ICD Code: E78.5 - HYPERLIPIDEMIA, UNSPECIFIED Status: Chronic Priority: Low Current Visit: No Qualifiers: Hyperlipidemia type: unspecified Qualified Code(s): E78.5 - Hyperlipidemia, unspecified (2) HTN (hypertension) SNOMED Code(s): 53424104 ICD Code: I10 - ESSENTIAL (PRIMARY) HYPERTENSION Status: Chronic Priority: Medium Current Visit: No Qualifiers: Hypertension type: unspecified Qualified Code(s): I10 - Essential (primary) hypertension (3) History of colon polyps SNOMED Code(s): 598556988 ICD Code: Z86.010 - PERSONAL HISTORY OF COLONIC POLYPS Status: Chronic Priority: Low Current Visit: No (4) GERD (gastroesophageal reflux disease) SNOMED Code(s): 773952407 ICD Code: K21.9 - GASTRO-ESOPHAGEAL REFLUX DISEASE WITHOUT ESOPHAGITIS Status: Chronic Priority: Medium Current Visit: No Qualifiers: Esophagitis presence: esophagitis presence not specified Qualified Code(s): K21.9 - Gastro-esophageal reflux disease without esophagitis (5) Osteoarthritis SNOMED Code(s): 964578702 ICD Code: M19.90 - UNSPECIFIED OSTEOARTHRITIS, UNSPECIFIED SITE Status: Chronic Priority: Low Current Visit: No Qualifiers: Osteoarthritis location: hand Osteoarthritis type: primary Laterality: unspecified laterality Qualified Code(s): M19.049 - Primary osteoarthritis, unspecified hand (6) History of prediabetes SNOMED Code(s): 583853715, 259459744 ICD Code: Z87.898 - PERSONAL HISTORY OF OTHER SPECIFIED CONDITIONS Status: Chronic Priority: Low Current Visit: No (7) Former smoker SNOMED Code(s): 5339881 ICD Code: Z87.891 - PERSONAL HISTORY OF NICOTINE DEPENDENCE Status: Chronic Priority: Low Current Visit: No (8) History of alcohol abuse SNOMED Code(s): 983266869 ICD Code: F10.11 - ALCOHOL ABUSE, IN REMISSION Status: Chronic Priority: Low Current Visit: No (9) Colitis SNOMED Code(s): 47030275 ICD Code: K52.9 - NONINFECTIVE GASTROENTERITIS AND COLITIS, UNSPECIFIED Status: Acute Priority: High Current Visit: Yes (10) Renal insufficiency SNOMED Code(s): 510694823, 343053228 ICD Code: N28.9 - DISORDER OF KIDNEY AND URETER, UNSPECIFIED Status: Acute Priority: High Current Visit: Yes (11) Abdominal pain SNOMED Code(s): 89194743 ICD Code: R10.9 - UNSPECIFIED ABDOMINAL PAIN Status: Acute Priority: High Current Visit: Yes Qualifiers: Abdominal location: unspecified location Qualified Code(s): R10.9 - Unspecified abdominal pain (12) Diverticulitis SNOMED Code(s): 191493969 ICD Code: K57.92 - DVTRCLI OF INTEST, PART UNSP, W/O PERF OR ABSCESS W/O BLEED Status: Acute Priority: High Current Visit: Yes - Patient Summary/Data Consults: Consultations 03/02/20 10:11 Consult to Occupational Therapy [OT Evaluation and Treatment] [CONS] Routine PT Evaluation and Treatment [CONS] Routine 03/02/20 10:43 Consult to Physician [CONS] Routine Labs Pending at D/C: None Recommended Follow-up Testing/Procedures: Follow-up with PCP within 5-7 days of discharge, sooner if needed. Hospital Course: Lawrence was admitted to the hospital floor observation status for nonspecific colitis and abdominal pain. He was also noted to have mild renal insufficiency. He was given IV fluids and his renal function did return to normal. He reported continued left upper and lower quadrant abdominal pain. He was given a clear liquid diet on admission and was quite upset about this. He stated that that is likely what was giving him some of his diarrhea. Nursing reported 3 small bowel movements. He was started on 750 mg daily Levaquin and 500 mg every 8 hour Flagyl IV. White count did trend down overnight. Patient reports that he had colonoscopy with Dr. Rhoades approximately 1 month prior. Notes from this visit were obtained along with pathology. Pathology report noted to 2 mm tubular adenoma without high-grade dysplasia polyps in the ascending colon. There were also three 2 mm tubular adenomas without high-grade dysplasia from t he sigmoid colon. One 2mm area of polypoid colonic mucosa with reactive lymphoid aggregate was also noted from the sigmoid colon. Per the colonoscopy notes there were mild diverticula noted in the sigmoid colon. Miguel, general surgeon, with was consulted on the patient and agree that this is likely diverticulitis. He recommended obtaining a C. difficile test. Discussed this with Dr. Burnham and is felt this is not necessary. Patient has not had more than 3 watery diarrhea stools. Differential did include ischemic bowel however given the patient's clinical picture this is not likely. He has had no more bright red blood per rectum while here. Diet was advanced without incident. He did work with PT/OT and they are recommending a home safety evaluation. Will prescribe 5 days of total antibiotics. He will be discharged on 500 mg Cipro twice daily starting 03/03/2020 and 500 mg every 8 hours Flagyl starting this evening. Instructed to follow-up with his primary care provider within 5 to 7 days. He was directed to return to the emergency room or contact his primary care provider should symptoms return or worsen. He will be discharged home today. - Patient Instructions Diet: Usual Diet as Tolerated Activity: As Tolerated Driving: May Drive Today Showering/Bathing: May Shower Notify Provider of: Fever, Increased Pain, Nausea and/or Vomiting Other/Special Instructions: Follow-up with primary care provider, Beverley Evangelista PA-C within 5-7 days of discharge, sooner if needed. Resume home medications as directed. Hold your Metformin until 03/04/20 due to having received contrast with your CT scan. Take all of your antibiotic until gone, even if you feel 100% better. Take it easy with your diet over the next few weeks. Should symptoms return or worsen follow-up with your primary care provider or return to the Emergency Department. - Discharge Plan *PRESCRIPTION DRUG MONITORING PROGRAM REVIEWED*: Not Applicable *COPY OF PRESCRIPTION DRUG MONITORING REPORT IN PATIENT ROE: Not Applicable Prescriptions/Med Rec: Ciprofloxacin HCl [Cipro] 500 mg PO Q12H #8 tablet metroNIDAZOLE [Flagyl] 500 mg PO Q8H #13 tab Home Medications: Home Meds Ascorbic Acid [Vitamin C] 1,000 mg PO DAILY 03/01/20 [History] Cetirizine HCl/Pseudoephedrine [ZyrTEC-D] 1 tab PO BID 03/01/20 [History] Tamsulosin HCl [Flomax] 0.4 mg PO DAILY 03/01/20 [History] Ciprofloxacin HCl [Cipro] 500 mg PO Q12H #8 tablet 03/02/20 [Rx] Orphenadrine [Norflex] 100 mg PO BID 03/02/20 [History] Simvastatin 5 mg PO DAILY 03/02/20 [History] amLODIPine [Norvasc] 10 mg PO DAILY 03/02/20 [History] metFORMIN HCl [Metformin HCl ER] 1,000 mg PO DAILY 03/02/20 [History] metroNIDAZOLE [Flagyl] 500 mg PO Q8H #13 tab 03/02/20 [Rx] Oxygen Therapy Mode: Room Air Patient Handouts: Diverticulitis, [id number], Abdominal Pain, Adult, [id number], Colitis Forms: ED Department Discharge Referrals: Beverley Evangelista PA-C [Primary Care Provider] - 03/08/20 9:00 am (You'll be seeing Dr. Hutton because Beverley is unavailable. You have an appointment with Dr. Hutton on March 08 at 0900 at [facility]. ) - Discharge Summary/Plan Comment DC Time >30 min.: Yes (45 mins ) - General Info Date of Service: 03/02/20 Admission Dx/Problem (Free Text: Admission Diagnosis/Problem Admission Diagnosis/Problem Colitis Functional Status: Reports: Pain Controlled, Tolerating Diet, Ambulating, Urinating. Denies: New Symptoms - Review of Systems General: Reports: No Symptoms. Denies: Fever, Weakness, Fatigue, Malaise, Chills HEENT: Reports: No Symptoms. Denies: Headaches, Sore Throat Pulmonary: Reports: No Symptoms. Denies: Shortness of Breath, Cough, Sputum, Wheezing Cardiovascular: Reports: No Symptoms. Denies: Chest Pain, Palpitations, Dyspnea on Exertion, Edema Gastrointestinal: Reports: Abdominal Pain (Left upper and lower quadrant ), Diarrhea. Denies: Constipation, Decreased Appetite, Hematochezia, Melena, Nausea, Vomiting Genitourinary: Reports: No Symptoms. Denies: Pain Musculoskeletal: Reports: No Symptoms Skin: Reports: No Symptoms. Denies: Cyanosis Neurological: Reports: No Symptoms. Denies: Confusion, Difficulty Walking, Gait Disturbance Psychiatric: Reports: No Symptoms - Patient Data Vitals - Most Recent: Last Vital Signs Temp 98.2 F 03/02/20 12:00 Pulse 81 03/02/20 12:00 Resp 16 03/02/20 12:00 BP 146/75 H 03/02/20 12:40 Pulse Ox 94 L 03/02/20 12:00 Weight - Most Recent: 216 lb 12.8 oz I&O - Last 24 hours: Intake & Output 03/01/20 03/02/20 03/02/20 22:59 06:59 14:59 Intake Total 975 560 Output Total 3990 Balance -575 560 Lab Results - Last 24 hrs: Laboratory Results - last 24 hr 03/01/20 03/01/20 03/02/20 Range/Units 20:00 20:00 05:12 WBC 14.55 H 11.23 H (4.23-9.07) K/mm3 RBC 4.32 L 4.36 L (4.63-6.08) M/mm3 Hgb 12.9 L 13.0 L (13.7-17.5) gm/dl Hct 40.1 40.6 (40.1-51.0) % MCV 92.8 H 93.1 H (79.0-92.2) fl MCH 29.9 29.8 (25.7-32.2) pg MCHC 32.2 32.0 L (32.2-35.5) g/dl RDW Std Deviation 46.7 H 47.0 H (35.1-43.9) fL Plt Count 338 H 304 (163-337) K/mm3 MPV 10.0 10.5 (9.4-12.3) fl Neut % (Auto) 56.9 (34.0-67.9) % Lymph % (Auto) 27.8 (21.8-53.1) % Mcdonald % (Auto) 12.3 H (5.3-12.2) % Eos % (Auto) 2.4 (0.8-7.0) Baso % (Auto) 0.4 (0.1-1.2) % Neut # (Auto) 6.40 H (1.78-5.38) K/mm3 Lymph # (Auto) 3.12 (1.32-3.57) K/mm3 Mcdonald # (Auto) 1.38 H (0.30-0.82) K/mm3 Eos # (Auto) 0.27 (0.04-0.54) K/mm3 Baso # (Auto) 0.04 (0.01-0.08) K/mm3 Neutrophils % (Manual) 64 H (40-60) % Band Neutrophils % 0 (0-10) % Lymphocytes % (Manual) 27 (20-40) % Atypical Lymphs % 0 % Monocytes % (Manual) 7 (2-10) % Eosinophils % (Manual) 2 (0.8-7.0) % Basophils % (Manual) 0 L (0.2-1.2) Manual Slide Review Not Reportable Platelet Estimate Adequate Plt Morphology Comment Normal RBC Morph Comment Normal Sodium 140 (136-145) mEq/L Potassium 3.9 (3.5-5.1) mEq/L Chloride 103 (98-107) mEq/L Carbon Dioxide 29 (21-32) mEq/L Anion Gap 11.9 (5-15) BUN 27 H (7-18) mg/dL Creatinine 1.4 H (0.7-1.3) mg/dL Est Cr Clr Drug Dosing 51.52 mL/min Estimated GFR (MDRD) 49 (>60) mL/min BUN/Creatinine Ratio 19.3 H (14-18) Glucose 134 H (83-115) mg/dL Calcium 9.6 (8.5-10.1) mg/dL Phosphorus (2.6-4.7) mg/dL Magnesium (1.8-2.4) mg/dl Total Bilirubin 0.3 (0.2-1.0) mg/dL AST 14 L (15-37) U/L ALT 30 (16-63) U/L Alkaline Phosphatase 70 (46-116) U/L Total Protein 7.0 (6.4-8.2) g/dl Albumin 3.2 L (3.4-5.0) g/dl Globulin 3.8 gm/dL Albumin/Globulin Ratio 0.8 L (1-2) Triglycerides (<150) mg/dL Cholesterol (<200) mg/dL LDL Cholesterol Direct (<100) mg/dL HDL Cholesterol (40-59) mg/dL Urine Color (Yellow) Urine Appearance (Clear) Urine pH (5.0-8.0) Ur Specific [place] (1.005-1.030) Urine Protein (Negative) Urine Glucose (UA) (Negative) Urine Ketones (Negative) Urine Occult Blood (Negative) Urine Nitrite (Negative) Urine Bilirubin (Negative) Urine Urobilinogen (0.2-1.0) Ur Leukocyte Esterase (Negative) Urine RBC (0-5) /hpf Urine WBC (0-5) /hpf Ur Epithelial Cells (0-5) /hpf Amorphous Sediment (NOT SEEN) /hpf Urine Bacteria (FEW) /hpf Urine Mucus (FEW) /hpf 03/02/20 03/02/20 03/02/20 Range/Units 05:12 05:12 05:12 WBC (4.23-9.07) K/mm3 RBC (4.63-6.08) M/mm3 Hgb (13.7-17.5) gm/dl Hct (40.1-51.0) % MCV (79.0-92.2) fl MCH (25.7-32.2) pg MCHC (32.2-35.5) g/dl RDW Std Deviation (35.1-43.9) fL Plt Count (163-337) K/mm3 MPV (9.4-12.3) fl Neut % (Auto) (34.0-67.9) % Lymph % (Auto) (21.8-53.1) % Mcdonald % (Auto) (5.3-12.2) % Eos % (Auto) (0.8-7.0) Baso % (Auto) (0.1-1.2) % Neut # (Auto) (1.78-5.38) K/mm3 Lymph # (Auto) (1.32-3.57) K/mm3 Mcdonald # (Auto) (0.30-0.82) K/mm3 Eos # (Auto) (0.04-0.54) K/mm3 Baso # (Auto) (0.01-0.08) K/mm3 Neutrophils % (Manual) (40-60) % Band Neutrophils % (0-10) % Lymphocytes % (Manual) (20-40) % Atypical Lymphs % % Monocytes % (Manual) (2-10) % Eosinophils % (Manual) (0.8-7.0) % Basophils % (Manual) (0.2-1.2) Manual Slide Review Platelet Estimate Plt Morphology Comment RBC Morph Comment Sodium 141 (136-145) mEq/L Potassium 4.0 (3.5-5.1) mEq/L Chloride 106 (98-107) mEq/L Carbon Dioxide 27 (21-32) mEq/L Anion Gap 12.0 (5-15) BUN 23 H (7-18) mg/dL Creatinine 1.1 (0.7-1.3) mg/dL Est Cr Clr Drug Dosing 65.57 mL/min Estimated GFR (MDRD) > 60 (>60) mL/min BUN/Creatinine Ratio 20.9 H (14-18) Glucose 97 (83-115) mg/dL Calcium 8.9 (8.5-10.1) mg/dL Phosphorus 3.7 (2.6-4.7) mg/dL Magnesium 1.8 (1.8-2.4) mg/dl Total Bilirubin (0.2-1.0) mg/dL AST (15-37) U/L ALT (16-63) U/L Alkaline Phosphatase (46-116) U/L Total Protein (6.4-8.2) g/dl Albumin (3.4-5.0) g/dl Globulin gm/dL Albumin/Globulin Ratio (1-2) Triglycerides 60 (<150) mg/dL Cholesterol 144 (<200) mg/dL LDL Cholesterol Direct 77 (<100) mg/dL HDL Cholesterol 53.0 (40-59) mg/dL Urine Color (Yellow) Urine Appearance (Clear) Urine pH (5.0-8.0) Ur Specific [place] (1.005-1.030) Urine Protein (Negative) Urine Glucose (UA) (Negative) Urine Ketones (Negative) Urine Occult Blood (Negative) Urine Nitrite (Negative) Urine Bilirubin (Negative) Urine Urobilinogen (0.2-1.0) Ur Leukocyte Esterase (Negative) Urine RBC (0-5) /hpf Urine WBC (0-5) /hpf Ur Epithelial Cells (0-5) /hpf Amorphous Sediment (NOT SEEN) /hpf Urine Bacteria (FEW) /hpf Urine Mucus (FEW) /hpf /16/20 Range/Units 10:32 WBC (4.23-9.07) K/mm3 RBC (4.63-6.08) M/mm3 Hgb (13.7-17.5) gm/dl Hct (40.1-51.0) % MCV (79.0-92.2) fl MCH (25.7-32.2) pg MCHC (32.2-35.5) g/dl RDW Std Deviation (35.1-43.9) fL Plt Count (163-337) K/mm3 MPV (9.4-12.3) fl Neut % (Auto) (34.0-67.9) % Lymph % (Auto) (21.8-53.1) % Mcdonald % (Auto) (5.3-12.2) % Eos % (Auto) (0.8-7.0) Baso % (Auto) (0.1-1.2) % Neut # (Auto) (1.78-5.38) K/mm3 Lymph # (Auto) (1.32-3.57) K/mm3 Mcdonald # (Auto) (0.30-0.82) K/mm3 Eos # (Auto) (0.04-0.54) K/mm3 Baso # (Auto) (0.01-0.08) K/mm3 Neutrophils % (Manual) (40-60) % Band Neutrophils % (0-10) % Lymphocytes % (Manual) (20-40) % Atypical Lymphs % % Monocytes % (Manual) (2-10) % Eosinophils % (Manual) (0.8-7.0) % Basophils % (Manual) (0.2-1.2) Manual Slide Review Platelet Estimate Plt Morphology Comment RBC Morph Comment Sodium (136-145) mEq/L Potassium (3.5-5.1) mEq/L Chloride (98-107) mEq/L Carbon Dioxide (21-32) mEq/L Anion Gap (5-15) BUN (7-18) mg/dL Creatinine (0.7-1.3) mg/dL Est Cr Clr Drug Dosing mL/min Estimated GFR (MDRD) (>60) mL/min BUN/Creatinine Ratio (14-18) Glucose (83-115) mg/dL Calcium (8.5-10.1) mg/dL Phosphorus (2.6-4.7) mg/dL Magnesium (1.8-2.4) mg/dl Total Bilirubin (0.2-1.0) mg/dL AST (15-37) U/L ALT (16-63) U/L Alkaline Phosphatase (46-116) U/L Total Protein (6.4-8.2) g/dl Albumin (3.4-5.0) g/dl Globulin gm/dL Albumin/Globulin Ratio (1-2) Triglycerides (<150) mg/dL Cholesterol (<200) mg/dL LDL Cholesterol Direct (<100) mg/dL HDL Cholesterol (40-59) mg/dL Urine Color Yellow (Yellow) Urine Appearance Clear (Clear) Urine pH 7.5 (5.0-8.0) Ur Specific [place] 1.015 (1.005-1.030) Urine Protein Negative (Negative) Urine Glucose (UA) Negative (Negative) Urine Ketones Negative (Negative) Urine Occult Blood Negative (Negative) Urine Nitrite Negative (Negative) Urine Bilirubin Negative (Negative) Urine Urobilinogen 0.2 (0.2-1.0) Ur Leukocyte Esterase Negative (Negative) Urine RBC Not seen (0-5) /hpf Urine WBC Not seen (0-5) /hpf Ur Epithelial Cells Not seen (0-5) /hpf Amorphous Sediment Few H (NOT SEEN) /hpf Urine Bacteria Rare (FEW) /hpf Urine Mucus Not seen (FEW) /hpf Med Orders - Current: Current Medications Acetaminophen (Tylenol) 650 mg PO Q4H PRN PRN Reason: Pain (Mild 1-3)/fever Amlodipine Besylate (Norvasc) 10 mg PO DAILY [facility] Last Admin: 03/02/20 12:40 Dose: 10 mg Lactated Ringer's (Ringers, Lactated) 1,000 mls @ 125 mls/hr IV ASDIRECTED [facility] Last Admin: 03/02/20 11:01 Dose: 125 mls/hr Levofloxacin/Dextrose 750 mg/ (Premix) 150 mls @ 100 mls/hr IV Q24H [facility] Metronidazole 500 mg/ Premix 100 mls @ 100 mls/hr IV Q8H [facility] Last Admin: 03/02/20 09:00 Dose: 100 mls/hr Ondansetron HCl (Zofran) 4 mg IVPUSH Q8H PRN PRN Reason: n/v Orphenadrine Citrate (Norflex) 100 mg PO BID [facility] Simvastatin (Zocor) 5 mg PO DAILY [facility] Tamsulosin HCl (Flomax) 0.4 mg PO DAILY [facility] Discontinued Medications Diatrizoate Meglum/Diatrizoate Sod (Gastrografin 37%) 40 ml PO ONETIME ONE Stop: 03/01/20 20:14 Last Admin: 03/01/20 21:47 Dose: 40 ml Hydromorphone HCl (Dilaudid) 0.5 mg IVPUSH ONETIME ONE Stop: 03/01/20 21:27 Last Admin: 03/01/20 21:48 Dose: 0.5 mg Hydromorphone HCl (Dilaudid) 0.5 mg IVPUSH Q2H PRN PRN Reason: Pain Sodium Chloride (Normal Saline) 1,000 mls @ 150 mls/hr IV ASDIRECTED [facility] Last Admin: 03/01/20 20:05 Dose: 150 mls/hr Levofloxacin/Dextrose 750 mg/ (Premix) 150 mls @ 100 mls/hr IV ONETIME STA Stop: 03/01/20 23:59 Last Admin: 03/01/20 22:45 Dose: 100 mls/hr Metronidazole 500 mg/ Premix 100 mls @ 100 mls/hr IV ONETIME STA Stop: 03/01/20 23:31 Last Admin: 03/01/20 22:45 Dose: 100 mls/hr Iopamidol (Isovue-300 (61%)) 100 ml IVPUSH ONETIME ONE Stop: 03/01/20 21:32 Last Admin: 03/01/20 21:47 Dose: 100 ml Non-Formulary Medication (Amlodipine [Norvasc]) 10 mg PO DAILY [facility] Ondansetron HCl (Zofran) 4 mg IVPUSH ONETIME ONE Stop: 03/01/20 21:28 Last Admin: 03/01/20 21:47 Dose: 4 mg Tamsulosin HCl (Flomax) 0.4 mg PO DAILY CARLOS - Exam Quality Assessment: Reports: DVT Prophylaxis General: Reports: Alert, Oriented, Cooperative, No Acute Distress HEENT: Reports: Pupils Equal, Pupils Reactive, Mucous Membr. Moist/[place] Neck: Reports: Supple, Trachea Midline Lungs: Reports: Clear to Auscultation, Normal Respiratory Effort Cardiovascular: Reports: Regular Rate, Regular Rhythm GI/Abdominal Exam: Normal Bowel Sounds, Soft, No Distention, Rebound, Tender (Lefe upper and lower quadrant ) (Male) Exam: Deferred Rectal (Males) Exam: Deferred Back Exam: Reports: Normal Inspection, Full Range of Motion Extremities: Normal Inspection, Normal Range of Motion, Non-Tender, No Pedal Edema, Normal Capillary Refill, Other (Bilateral abrasions to knees. Scab on left with no signs of infection. ) Skin: Reports: Warm, Dry, Intact Neurological: Reports: No New Focal Deficit Psy/Mental Status: Reports: Alert, Normal Affect, Normal Mood
[2020-03-02] MEDS ORDERED: Levofloxacin/Dextrose 5%-Water 750 MG in Premix Bag 1 BAG IV SCH (21:00)
[2020-03-02] MEDS ORDERED: Orphenadrine 100 MG Tab.ER PO SCH (21:00)
[2020-03-03] MEDS ORDERED: Simvastatin 10 MG Tab PO SCH (09:00)
[2020-03-03] MEDS ORDERED: Tamsulosin 0.4 MG Cap.ER PO SCH ×2 (09:00)
== END 2020-03-02 16:44 | disposition home or self-care (01) ==
LOC: JD.ED 19:15 → JD.MS 22:52
PROVIDERS: ADMIT Internal Medicine; ATTEND Internal Medicine
DX: K52.9 Noninfective gastroenteritis and colitis, unspecified (principal); K57.91 Diverticulosis of intestine, part unspecified, without perforation or abscess with bleeding; E78.5 Hyperlipidemia, unspecified; I10 Essential (primary) hypertension; K21.9 Gastro-esophageal reflux disease without esophagitis; F10.11 Alcohol abuse, in remission; N28.9 Disorder of kidney and ureter, unspecified; R73.03 Prediabetes; M19.049 Primary osteoarthritis, unspecified hand; Z87.898 Personal history of other specified conditions; Z87.891 Personal history of nicotine dependence; Z86.010 Personal history of colon polyps; Z79.899 Other long term (current) drug therapy; Z91.018 Allergy to other foods; Z87.19 Personal history of other diseases of the digestive system; Z98.890 Other specified postprocedural states
CPT/HCPCS: 36415; 74177; 80048; 80053; 80061; 81001; 83735; 84100; 85007; 85025; 85027; 96361; 96365; 96366; 96368; 96375; 97161; 97165; 97530; 99285; A9270; G0378; J1170; J1956; J2405; J3490; J7030; J7120; Q9963; Q9967

== ENCOUNTER 2020-07-02 10:47 | Emergency (ER) | payer MEDICARE, OTHER ==
--- NOTE | 2020-07-02 12:04 | EDM.PDOC ---
ED HPI GENERAL MEDICAL PROBLEM - General Chief Complaint: Abdominal Pain Stated Complaint: CONSTIPATION Time Seen by Provider: 07/02/20 11:42 Source of Information: Reports: Patient, RN Notes Reviewed History Limitations: Reports: No Limitations - History of Present Illness INITIAL COMMENTS - FREE TEXT/NARRATIVE: The patient is a 75-year-old male who presents to the ER for his constipation. States he has not had a good bowel movement in 3 to 4 days. States he gets the urge to go the bathroom, and has a few small hard movements, but has not had anything real productive. He is not having any diarrhea. No nausea or vomiting. He does not take a daily stool softener or any sort of supplements. He states he does have some pressure in his rectal area, did take something like MiraLAX today. He has not noticed any blood or black color to his stools. He is also not had any fevers or chills, cough or shortness of breath and feeling well otherwise. He is complaining of some mild generalized abdomen pain and distention with this. 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 below) Other Treatments SUPERVISOR [employer] AC[employer]: miralax equivilent Rectal Pain Score (Numeric/FACES): 7 - Related Data Allergies Allergy/AdvReac Type Severity Reaction Status Date / Time tomato Allergy Severe Swelling Verified 07/02/20 11:29 tree nut Allergy Severe Swelling Verified 07/02/20 11:29 berries Allergy Severe Mouth Sores Uncoded 07/02/20 11:29 Home Meds: Home Meds Ascorbic Acid [Vitamin C] 1,000 mg PO DAILY 03/01/20 [History] Cetirizine HCl/Pseudoephedrine [ZyrTEC-D] 1 tab PO BID 03/01/20 [History] Tamsulosin HCl [Flomax] 0.4 mg PO DAILY 03/01/20 [History] Ciprofloxacin HCl [Cipro] 500 mg PO Q12H #8 tablet 03/02/20 [Rx] Orphenadrine [Norflex] 100 mg PO BID 03/02/20 [History] Simvastatin 5 mg PO DAILY 03/02/20 [History] amLODIPine [Norvasc] 10 mg PO DAILY 03/02/20 [History] metFORMIN HCl [Metformin HCl ER] 1,000 mg PO DAILY 03/02/20 [History] metroNIDAZOLE [Flagyl] 500 mg PO Q8H #13 tab 03/02/20 [Rx] Past Medical History HEENT History: Reports: Impaired Vision Cardiovascular History: Reports: High Cholesterol, Hypertension Gastrointestinal History: Reports: Colon Polyp, GERD, Hemorrhoids Genitourinary History: Reports: Other (See Below) Other Genitourinary History: Urinary Retention. Musculoskeletal History: Reports: Osteoarthritis Other Musculoskeletal History: Back Surgery: cyst removal and bone spur X1 week ago. Open sciatic area by nerve. done february 12 Endocrine/Metabolic History: Reports: Other (See Below) Other Endocrine/Metabolic History: Prediabetes. Dermatologic History: Reports: Other (See Below) Other Dermatologic History: Upper back previous removal site in grown hair. - Past Surgical History HEENT Surgical History: Reports: Oral Surgery Other HEENT Surgeries/Procedures: Saliva gland removed on right side. 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 ED EXAM, GI/ABD - Physical Exam Exam: See Below Exam Limited By: No Limitations General Appearance: Alert, WD/WN, No Apparent Distress Respiratory/Chest: No Respiratory Distress, Lungs Clear, Normal Breath Sounds, No Accessory Muscle Use, Chest Non-Tender Cardiovascular: Normal Peripheral Pulses, Regular Rate, Rhythm, No Murmur GI/Abdominal Exam: Normal Bowel Sounds, Soft, Distended (mild, generalized), Tender (generalized, but no major discomfort). No: Rigid Extremities: Normal Inspection, Normal Capillary Refill Neurological: Alert, Oriented, Normal Cognition, No Motor/Sensory Deficits Psychiatric: Normal Affect, Normal Mood Skin Exam: Warm, Dry, Intact, Normal Color, No Rash Course - Vital Signs Last Recorded V/S: Last Vital Signs Temp 97.6 F 07/02/20 11:27 Pulse 87 07/02/20 11:27 Resp 20 07/02/20 11:27 BP 148/77 H 07/02/20 11:27 Pulse Ox 96 07/02/20 11:27 - Orders/Labs/Meds Orders: Active Orders 24 hr Category Date Time Status Enema [RC] ASDIRECTED Care 07/02/20 12:27 Active KUB [Abdomen 1V Flat] [CR] Stat Exams 07/02/20 11:51 Ordered Meds: Medications Discontinued Medications Generic Name Dose Route Start Last Admin Trade Name Phyllis PRN Reason Stop Dose Admin Magnesium Citrate 296 ml 07/02/20 12:27 Citrate Of Magnesia PO 07/02/20 12:28 ONETIME ONE - Re-Assessments/Exams Free Text/Narrative Re-Assessment/Exam: 07/02/20 12:03 Patient presents to the ED for his constipation. Have ordered KUB x-ray for initial evaluation, to see the stool/gas pattern. We will come up with a plan to help him have a bowel movement after we get the x-ray. 07/02/20 12:42 The x-ray did show quite a bit of stool throughout the colon. And within the rectal vault. He will be given a bottle of mag citrate along with an enema to help relieve him at this time. Departure - Departure Time of Disposition: 12:44 Disposition: Home, Self-Care 01 Condition: Good Clinical Impression: Constipation Qualifiers: Constipation type: other constipation type Qualified Code(s): K59.09 - Other constipation - Discharge Information *PRESCRIPTION DRUG MONITORING PROGRAM REVIEWED*: No *COPY OF PRESCRIPTION DRUG MONITORING REPORT IN PATIENT ROE: No Instructions: Constipation, Adult, [id number] Referrals: Beverley Evangelista PA-C [Primary Care Provider] - Forms: ED Department Discharge Additional Instructions: You were evaluated in the ER today for your constipation. Your x-ray did show quite a bit of stool throughout your entire bowel. You have been given a bottle of mag citrate and an enema to help provide a good bowel movement. The mag citrate might take a few hours to kick in. Please drink one half the bottle wait a few hours if you do not have a rather large bowel movement, repeat with the last half bottle. Please be aware that you might have some looser stools after you take the mag citrate, this is common. You also have some slight abdomen cramping along with this. You can take some Tylenol ibuprofen for the discomfort. Highly recommend you start taking a stool softener like MiraLAX or Colace in your daily diet, as this will help provide good bowel health and keep your stool soft so you do not get constipated again. Please return to the ER at any time if symptoms change or worsen. Sepsis Event Note (ED) - Evaluation Sepsis Screening Result: No Definite Risk - Focused Exam Vital Signs: Vital Signs Temp Pulse Resp BP Pulse Ox 07/02/20 11:27 97.6 F 87 20 148/77 H 96 - My Orders Last 24 Hours: My Active Orders 07/02/20 11:51 KUB [Abdomen 1V Flat] [CR] Stat 07/02/20 12:27 Enema [RC] ASDIRECTED - Assessment/Plan Last 24 Hours: My Active Orders 07/02/20 11:51 KUB [Abdomen 1V Flat] [CR] Stat 07/02/20 12:27 Enema [RC] ASDIRECTED
[2020-07-02] MEDS ORDERED: Magnesium Citrate Solution 296 ML Bottle PO ONE (12:27)
== END 2020-07-02 13:00 | disposition home or self-care (01) ==
LOC: JD.ED 10:47
DX: K59.09 Other constipation (principal); E78.00 Pure hypercholesterolemia, unspecified; I10 Essential (primary) hypertension; Z87.891 Personal history of nicotine dependence; R73.03 Prediabetes; Z79.84 Long term (current) use of oral hypoglycemic drugs; Z79.899 Other long term (current) drug therapy; Z91.018 Allergy to other foods
CPT/HCPCS: 74018; 99283; A9270; 99282

== ENCOUNTER 2020-08-08 04:40 | Emergency (ER) | payer MEDICARE, OTHER ==
[2020-08-08] MEDS ORDERED: Lidocaine 2% Jelly 10 ML Urojet ONE (04:55)
[2020-08-08] MEDS ORDERED: Lidocaine 2% Jelly 10 ML Urojet MUCMEM ONE (05:56)
[2020-08-08] MEDS ORDERED: Magnesium Citrate Solution 296 ML Bottle PO ONE (06:09)
--- NOTE | 2020-08-08 06:16 | EDM.PDOC ---
ED HPI GENERAL MEDICAL PROBLEM - General Chief Complaint: Genitourinary Problem Stated Complaint: CAN'T URINATE/CONSTIPATED POST SURGERY SUNDAY Time Seen by Provider: 08/08/20 04:47 Source of Information: Reports: Patient History Limitations: Reports: No Limitations - History of Present Illness INITIAL COMMENTS - FREE TEXT/NARRATIVE: This is a 75-year-old male. He had surgery last week his lower back. He now is constipated and he cannot urinate and he comes to the ER for evaluation. He states he is got a lot of pain and tenderness where the bladder is. He has had problems with constipation in the past. He is on narcotics after surgery. He is on some milk of magnesia but it has not been helping. He denies any fever or chills he denies any other acute symptoms. - Related Data Allergies Allergy/AdvReac Type Severity Reaction Status Date / Time tomato Allergy Severe Swelling Verified 07/02/20 11:29 tree nut Allergy Severe Swelling Verified 07/02/20 11:29 berries Allergy Severe Mouth Sores Uncoded 07/02/20 11:29 Home Meds: Home Meds Ascorbic Acid [Vitamin C] 1,000 mg PO DAILY 03/01/20 [History] Cetirizine HCl/Pseudoephedrine [ZyrTEC-D] 1 tab PO BID 03/01/20 [History] Tamsulosin HCl [Flomax] 0.4 mg PO DAILY 03/01/20 [History] Ciprofloxacin HCl [Cipro] 500 mg PO Q12H #8 tablet 03/02/20 [Rx] Orphenadrine [Norflex] 100 mg PO BID 03/02/20 [History] Simvastatin 5 mg PO DAILY 03/02/20 [History] amLODIPine [Norvasc] 10 mg PO DAILY 03/02/20 [History] metFORMIN HCl [Metformin HCl ER] 1,000 mg PO DAILY 03/02/20 [History] metroNIDAZOLE [Flagyl] 500 mg PO Q8H #13 tab 03/02/20 [Rx] Past Medical History HEENT History: Reports: Impaired Vision Cardiovascular History: Reports: High Cholesterol, Hypertension Gastrointestinal History: Reports: Colon Polyp, GERD, Hemorrhoids Genitourinary History: Reports: Other (See Below) Other Genitourinary History: Urinary Retention. Musculoskeletal History: Reports: Osteoarthritis Other Musculoskeletal History: Back Surgery: cyst removal and bone spur X1 week ago. Open sciatic area by nerve. done february 12 Endocrine/Metabolic History: Reports: Other (See Below) Other Endocrine/Metabolic History: Prediabetes. Dermatologic History: Reports: Other (See Below) Other Dermatologic History: Upper back previous removal site in grown hair. - Infectious Disease History Infectious Disease History: Reports: None - Past Surgical History HEENT Surgical History: Reports: Oral Surgery Other HEENT Surgeries/Procedures: Saliva gland removed on right side. 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 Denies: Nausea, Vomiting : Reports: No Symptoms Musculoskeletal: Reports: Back Pain Skin: Reports: No Symptoms Neurological: Reports: No Symptoms Psychiatric: Reports: No Symptoms ED EXAM, RENAL/ - Physical Exam Exam: See Below Exam Limited By: No Limitations General Appearance: Alert, WD/WN, No Apparent Distress Eye Exam: Bilateral Eye: Normal Inspection Ears: Normal External Exam Throat/Mouth: Normal Voice, No Airway Compromise Head: Normocephalic Neck: Supple Respiratory/Chest: No Respiratory Distress, Lungs Clear, Normal Breath Sounds Cardiovascular: Regular Rate, Rhythm, No Murmur GI/Abdominal: Other (Initially very large distended bladder, after we placed a Munson catheter 1300 cc were obtained now he is soft and nontender.) Rectal (Males) Exam: Deferred Back Exam: Decreased Range of Motion (Status post lumbar surgery ) Extremities: Normal Inspection, Normal Range of Motion Neurological: Alert, Oriented Psychiatric: Normal Affect, Normal Mood Skin Exam: Warm, Dry Course - Vital Signs Last Recorded V/S: Last Vital Signs Temp 97.2 F 08/08/20 04:51 Pulse 95 08/08/20 04:51 Resp 16 08/08/20 04:51 BP 153/75 H 08/08/20 04:51 Pulse Ox 95 08/08/20 04:51 - Orders/Labs/Meds Orders: Active Orders 24 hr Category Date Time Status UA W/MICROSCOPIC [URIN] Stat Lab 08/08/20 05:52 Received Magnesium Citrate [Citrate of Magnesia] Med 08/08/20 06:09 Once 296 ml PO ONETIME ONE Meds: Medications Discontinued Medications Generic Name Dose Route Start Last Admin Trade Name Phyllis PRN Reason Stop Dose Admin Lidocaine HCl Confirm 08/08/20 04:55 Xylocaine 2% Jelly Administered 08/08/20 04:56 Dose 10 ml .ROUTE .STK-MED ONE Lidocaine HCl 10 ml 08/08/20 05:56 08/08/20 05:57 Xylocaine 2% Jelly MUCMEM 08/08/20 05:57 10 ml ONETIME ONE Administration - Re-Assessments/Exams Free Text/Narrative Re-Assessment/Exam: 08/08/20 06:13 Switch the Munson catheter to a leg bag and give him a bottle of mag citrate to go home. Departure - Departure Time of Disposition: 06:14 Disposition: Home, Self-Care 01 Condition: Good Clinical Impression: Urinary retention Constipation Qualifiers: Constipation type: unspecified constipation type Qualified Code(s): K59.00 - Constipation, unspecified - Discharge Information *PRESCRIPTION DRUG MONITORING PROGRAM REVIEWED*: Not Applicable *COPY OF PRESCRIPTION DRUG MONITORING REPORT IN PATIENT ROE: Not Applicable Instructions: Indwelling Urinary Catheter Care, Adult, Constipation, Adult, [id number] Referrals: Beverley Evangelista PA-C [Primary Care Provider] - Additional Instructions: When you get home take one half bottle of the mag citrate and drink it, continue to drink lots of fluids tomorrow as well. If you do not have results within 12 hours drink the other half of the mag citrate. Consider getting some Colace or Jerica-Colace and take it twice a day 2 capsules to help with the stools, follow- up with your doctor in the next 2 to 3 days for Munson catheter removal, be certain you are having bowel movements prior to removing the Munson catheter, return to the ER if needed Sepsis Event Note (ED) - Evaluation Sepsis Screening Result: No Definite Risk - Focused Exam Vital Signs: Vital Signs Temp Pulse Resp BP Pulse Ox 08/08/20 04:51 97.2 F 95 16 153/75 H 95 - My Orders Last 24 Hours: My Active Orders 08/08/20 05:52 UA W/MICROSCOPIC [URIN] Stat 08/08/20 06:09 Magnesium Citrate [Citrate of Magnesia] 296 ml PO ONETIME ONE - Assessment/Plan Last 24 Hours: My Active Orders 08/08/20 05:52 UA W/MICROSCOPIC [URIN] Stat 08/08/20 06:09 Magnesium Citrate [Citrate of Magnesia] 296 ml PO ONETIME ONE
== END 2020-08-08 06:46 | disposition home or self-care (01) ==
LOC: JD.ED 04:40
DX: K59.00 Constipation, unspecified (principal); R33.9 Retention of urine, unspecified; E78.00 Pure hypercholesterolemia, unspecified; I10 Essential (primary) hypertension; Z79.899 Other long term (current) drug therapy; Z79.84 Long term (current) use of oral hypoglycemic drugs; Z91.018 Allergy to other foods
CPT/HCPCS: 51702; 81001; 99283-25

== ENCOUNTER 2020-08-08 11:28 | Emergency (ER) | payer MEDICARE, OTHER ==
--- NOTE | 2020-08-08 12:10 | EDM.PDOC ---
ED HPI GENERAL MEDICAL PROBLEM - General Chief Complaint: General Stated Complaint: CONSTIPATION Time Seen by Provider: 08/08/20 11:40 Source of Information: Reports: Patient History Limitations: Reports: No Limitations - History of Present Illness INITIAL COMMENTS - FREE TEXT/NARRATIVE: The patient presents with rectal pain and abdominal pain. This has been going on for a few days. He had low back surgery on of last week. He was seen here last night because he could not urinate or have a bowel movement. A molina catheter was put in and he was given some magnesium citrate to help him have a bowel movement. He was unable to go. He has more rectal pressure now. He has no fever, chills, cough, congestion, runny nose, chest pain, shortness of breath, nausea or vomiting. Onset: Gradual Duration: Day(s): Location: Reports: Abdomen (and rectum) Quality: Reports: Sharp, Other (cramping) Severity: Moderate Improves with: Reports: None Worsens with: Reports: None Associated Symptoms: Reports: No Other Symptoms Bilateral Hip Pain Score (Numeric/FACES): 9 - Related Data Allergies Allergy/AdvReac Type Severity Reaction Status Date / Time tomato Allergy Severe Swelling Verified 08/08/20 11:41 tree nut Allergy Severe Swelling Verified 08/08/20 11:41 berries Allergy Severe Mouth Sores Uncoded 07/02/20 11:29 Home Meds: Home Meds Ascorbic Acid [Vitamin C] 1,000 mg PO DAILY 03/01/20 [History] Cetirizine HCl/Pseudoephedrine [ZyrTEC-D] 1 tab PO BID 03/01/20 [History] Tamsulosin HCl [Flomax] 0.4 mg PO DAILY 03/01/20 [History] Ciprofloxacin HCl [Cipro] 500 mg PO Q12H #8 tablet 03/02/20 [Rx] Orphenadrine [Norflex] 100 mg PO BID 03/02/20 [History] Simvastatin 5 mg PO DAILY 03/02/20 [History] amLODIPine [Norvasc] 10 mg PO DAILY 03/02/20 [History] metFORMIN HCl [Metformin HCl ER] 1,000 mg PO DAILY 03/02/20 [History] metroNIDAZOLE [Flagyl] 500 mg PO Q8H #13 tab 03/02/20 [Rx] Past Medical History HEENT History: Reports: Impaired Vision Cardiovascular History: Reports: High Cholesterol, Hypertension Gastrointestinal History: Reports: Colon Polyp, GERD, Hemorrhoids Genitourinary History: Reports: Other (See Below) Other Genitourinary History: Urinary Retention. Musculoskeletal History: Reports: Osteoarthritis Other Musculoskeletal History: Back Surgery: cyst removal and bone spur X1 week ago. Open sciatic area by nerve. done february 12 Endocrine/Metabolic History: Reports: Other (See Below) Other Endocrine/Metabolic History: Prediabetes. Dermatologic History: Reports: Other (See Below) Other Dermatologic History: Upper back previous removal site in grown hair. - Infectious Disease History Infectious Disease History: Reports: None - Past Surgical History HEENT Surgical History: Reports: Oral Surgery Other HEENT Surgeries/Procedures: Saliva gland removed on right side. 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 ROS GENERAL - Review of Systems Review Of Systems: See Below Constitutional: Reports: No Symptoms HEENT: Reports: No Symptoms Respiratory: Reports: No Symptoms Cardiovascular: Reports: No Symptoms Endocrine: Reports: No Symptoms GI/Abdominal: Reports: Abdominal Pain, Constipation : Reports: No Symptoms Musculoskeletal: Reports: No Symptoms ED EXAM, GENERAL - Physical Exam Exam: See Below Exam Limited By: No Limitations General Appearance: Alert, No Apparent Distress Ears: Normal External Exam Nose: Normal Inspection Head: Atraumatic, Normocephalic Neck: Normal Inspection Respiratory/Chest: No Respiratory Distress, Lungs Clear, Normal Breath Sounds Cardiovascular: Regular Rate, Rhythm, No Edema, No Murmur GI/Abdominal: Soft, Non-Tender, No Organomegaly, No Mass Back Exam: Normal Inspection Extremities: Normal Inspection Neurological: Alert, Oriented, No Motor/Sensory Deficits Course - Vital Signs Last Recorded V/S: Last Vital Signs Temp 97.8 F 08/08/20 11:39 Pulse 99 08/08/20 11:39 Resp 22 H 08/08/20 11:39 BP 148/87 H 08/08/20 11:39 Pulse Ox 95 08/08/20 11:39 - Orders/Labs/Meds Orders: Active Orders 24 hr Category Date Time Status Enema [RC] ASDIRECTED Care 08/08/20 12:45 Active Abdomen 1V Upright [CR] Stat Exams 08/08/20 12:03 Taken - Re-Assessments/Exams Free Text/Narrative Re-Assessment/Exam: 08/08/20 12:10 I have ordered an x-ray of his abdomen. 08/08/20 13:27 His x-ray shows moderate amount of stool. I gave him a soap suds enema. He had results and feels better. I will discharge him home. Departure - Departure Time of Disposition: 13:30 Disposition: Home, Self-Care 01 Condition: Good Clinical Impression: Urinary retention Constipation Qualifiers: Constipation type: unspecified constipation type Qualified Code(s): K59.00 - Constipation, unspecified - Discharge Information *PRESCRIPTION DRUG MONITORING PROGRAM REVIEWED*: Not Applicable *COPY OF PRESCRIPTION DRUG MONITORING REPORT IN PATIENT ROE: Not Applicable Referrals: Beverley Evangelista PA-C [Primary Care Provider] - 2 Days Forms: ED Department Discharge Additional Instructions: Drink plenty of fluids. Take some prune juice or take some miralax or stool softeners. Follow up with you doctor within a couple of days. Please return if you are worse. Sepsis Event Note (ED) - Evaluation Sepsis Screening Result: No Definite Risk - Focused Exam Vital Signs: Vital Signs Temp Pulse Resp BP Pulse Ox 08/08/20 11:39 97.8 F 99 22 H 148/87 H 95 - My Orders Last 24 Hours: My Active Orders 08/08/20 12:03 Abdomen 1V Upright [CR] Stat 08/08/20 12:45 Enema [RC] ASDIRECTED - Assessment/Plan Last 24 Hours: My Active Orders 08/08/20 12:03 Abdomen 1V Upright [CR] Stat 08/08/20 12:45 Enema [RC] ASDIRECTED
--- NOTE | 2020-08-09 10:03 | CR ---
PROCEDURE INFORMATION: Exam: XR Abdomen, 1 View Exam date and time: 08/08/2020 12:20 PM Age: 75 years old Clinical indication: Abdominal pain; Other: Constipation TECHNIQUE: Imaging protocol: XR of the abdomen. Views: Frontal supine view of the abdomen. 1 View. COMPARISON: DX Abdomen 1V Flat 07/02/2020 11:57 AM FINDINGS: Gastrointestinal tract: Moderately distended small bowel loops in the right lower quadrant. Prominent fecal burden in the descending colon. Cannot completely exclude bowel obstruction. No free air or fluid observed. Bones/joints: Unremarkable. IMPRESSION: Abnormal bowel gas pattern. SBO not excluded. Follow-up recommended. Thank you for allowing us to participate in the care of your patient. Dictated and Authenticated by: Bakari Rodríguez MD 08/08/2020 1:36 PM Central Time ([place] & [place]) [facility]
== END 2020-08-08 13:42 | disposition home or self-care (01) ==
LOC: JD.ED 11:28
DX: K59.00 Constipation, unspecified (principal); R33.9 Retention of urine, unspecified; E78.00 Pure hypercholesterolemia, unspecified; I10 Essential (primary) hypertension; Z91.018 Allergy to other foods
CPT/HCPCS: 74018; 74018-26; 99284-25

== ENCOUNTER 2020-09-10 13:44 | Emergency (ER) | payer MEDICARE, OTHER ==
--- NOTE | 2020-09-10 14:13 | EDM.PDOC ---
ED HPI GENERAL MEDICAL PROBLEM - General Chief Complaint: Head Injury Stated Complaint: HEAD INJURY/FALL Time Seen by Provider: 09/10/20 13:55 Source of Information: Reports: Patient, RN Notes Reviewed History Limitations: Reports: No Limitations - History of Present Illness INITIAL COMMENTS - FREE TEXT/NARRATIVE: Patient is a 75-year-old male presenting to the emergency department after falling and hitting his head on the concrete. He states he was carrying some batteries and fell backwards striking his head. The fall was not witnessed and he is unsure if he lost consciousness. He came to the ER because he "did not feel right "and his found a lump on the back of his head. He is not on blood thinners, however he does take an aspirin 81 mg daily. Denies any vision changes, dizziness, vomiting, or headache at this time. He denies any other injuries other than striking his head. - Related Data Allergies Allergy/AdvReac Type Severity Reaction Status Date / Time tomato Allergy Severe Swelling Verified 09/10/20 13:55 tree nut Allergy Severe Swelling Verified 09/10/20 13:55 berries Allergy Severe Mouth Sores Uncoded 09/10/20 13:55 Home Meds: Home Meds Ascorbic Acid [Vitamin C] 1,000 mg PO DAILY 03/01/20 [History] Cetirizine HCl/Pseudoephedrine [ZyrTEC-D] 1 tab PO BID 03/01/20 [History] Tamsulosin HCl [Flomax] 0.4 mg PO DAILY 03/01/20 [History] Ciprofloxacin HCl [Cipro] 500 mg PO Q12H #8 tablet 03/02/20 [Rx] Orphenadrine [Norflex] 100 mg PO BID 03/02/20 [History] Simvastatin 5 mg PO DAILY 03/02/20 [History] amLODIPine [Norvasc] 10 mg PO DAILY 03/02/20 [History] metFORMIN HCl [Metformin HCl ER] 1,000 mg PO DAILY 03/02/20 [History] metroNIDAZOLE [Flagyl] 500 mg PO Q8H #13 tab 03/02/20 [Rx] Past Medical History HEENT History: Reports: Impaired Vision Cardiovascular History: Reports: High Cholesterol, Hypertension Gastrointestinal History: Reports: Colon Polyp, GERD, Hemorrhoids Genitourinary History: Reports: Other (See Below) Other Genitourinary History: Urinary Retention. Musculoskeletal History: Reports: Osteoarthritis Other Musculoskeletal History: Back Surgery: cyst removal and bone spur X1 week ago. Open sciatic area by nerve. done february 12 Endocrine/Metabolic History: Reports: Other (See Below) Other Endocrine/Metabolic History: Prediabetes. Dermatologic History: Reports: Other (See Below) Other Dermatologic History: Upper back previous removal site in grown hair. - Infectious Disease History Infectious Disease History: Reports: None - Past Surgical History HEENT Surgical History: Reports: Oral Surgery Other HEENT Surgeries/Procedures: Saliva gland removed on right side. 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 ED EXAM, HEAD INJURY - Physical Exam Exam: See Below General Appearance: Alert, WD/WN, No Apparent Distress Head: Scalp Hematoma (right parietal), Scalp Tenderness (Right parietal). No: Scalp Lacerations, Pérez's Sign Nexus Criteria: No: Posterior, Midline Cervical Tenderness, Evidence of Intoxication, Altered Level of Consciousness, Focal Neurological Deficit, Painful Distraction Injuries Neck: Non-Tender, Full Range of Motion, Normal Alignment, Normal Inspection Respiratory: No Respiratory Distress, Lungs Clear, Normal Breath Sounds, No Accessory Muscle Use, Chest Non-Tender Cardiovascular: Normal Peripheral Pulses, Regular Rate, Rhythm, No Edema, No Gallop, No JVD, No Murmur, No Rub GI/Abdominal Exam: Normal Bowel Sounds, Soft, Non-Tender, No Organomegaly, No Distention, No Abnormal Bruit, No Mass Extremities: Normal Inspection, Normal Range of Motion, Non-Tender, No Pedal Edema, Normal Capillary Refill 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 As Tested, No Motor/Sensory Deficits, Alert, Normal Mood/Affect, Oriented x 3 Skin: Normal Color, Warm/Dry - Ruma Coma Score Best Eye Response ([place]): (4) Open Spontaneously Best Verbal Response ([place]): (5) Oriented Best Motor Response ([place]): (6) Obeys Commands Course - Vital Signs Last Recorded V/S: Last Vital Signs Temp 97.8 F 09/10/20 13:52 Pulse 89 09/10/20 13:52 Resp 18 09/10/20 13:52 BP 147/73 H 09/10/20 13:52 Pulse Ox 97 09/10/20 13:52 - Re-Assessments/Exams Free Text/Narrative Re-Assessment/Exam: Patient is a 75-year-old male presenting to the emergency department with complaints of head injury. States he fell backwards and hit the back of his head on cement. He is unsure if he lost consciousness. States he does not feel quite right, therefore he came to the ER. He denies any vision changes, headache, or dizziness. He is not on blood thinners. I ordered a CT scan of the head. Neurologic exam was grossly unremarkable. 09/10/20 15:39 CT scan showed diffuse senescent changes as noted above. There was no acute intracranial abnormality seen. Patient continues to feel well. We will discharge him home with routine precautions. Discharge instructions as documented. Departure - Departure Time of Disposition: 15:40 Disposition: Home, Self-Care 01 Condition: Good Clinical Impression: Head injury Qualifiers: Encounter type: initial encounter Qualified Code(s): S09.90XA - Unspecified injury of head, initial encounter - Discharge Information *PRESCRIPTION DRUG MONITORING PROGRAM REVIEWED*: No *COPY OF PRESCRIPTION DRUG MONITORING REPORT IN PATIENT ROE: No Instructions: Head Injury, Adult, [id number] Referrals: Beverley Evangelista PA-C [Primary Care Provider] - Forms: ED Department Discharge Additional Instructions: You were seen in the emergency department today for evaluation after falling and striking your head on the cement. CT scan of your head was done and found to be normal. Your neurologic exam was also normal. Recommend that you take it easy for the rest of the day. If you should develop any concerning symptoms, please not hesitate to return to the emergency department for reevaluation. Sepsis Event Note (ED) - Evaluation Sepsis Screening Result: No Definite Risk - Focused Exam Vital Signs: Vital Signs Temp Pulse Resp BP Pulse Ox 09/10/20 13:52 97.8 F 89 18 147/73 H 97
--- NOTE | 2020-09-10 14:49 | CT ---
Head CT Technique: Multiple axial sections through the brain were obtained. Intravenous contrast was not utilized. Comparison: Previous MRI brain of 02/25/13. Findings: Ventricles along with basal cisterns and sulci over the convexities are mildly prominent. Multiple areas of diminished density are seen within the periventricular and subcortical white matter which is most likely due to small vessel ischemic demyelination change. No other abnormal parenchymal densities are seen. No evidence of intracranial hemorrhage. No midline shift or mass-effect is seen. Bone window settings were reviewed which show no acute calvarial finding. Visualized mastoid sinuses and paranasal sinuses show nothing acute. Atherosclerotic calcification is seen within the carotid siphon. Impression: 1. Diffuse senescent change as noted above. 2. No acute intracranial abnormality is otherwise seen. Diagnostic code #2
== END 2020-09-10 15:53 | disposition home or self-care (01) ==
LOC: JD.ED 13:44
DX: S00.03XA Contusion of scalp, initial encounter (principal); E78.00 Pure hypercholesterolemia, unspecified; I10 Essential (primary) hypertension; M19.90 Unspecified osteoarthritis, unspecified site; Z87.891 Personal history of nicotine dependence; Z91.018 Allergy to other foods; Z79.899 Other long term (current) drug therapy; W18.30XA Fall on same level, unspecified, initial encounter; Y93.01 Activity, walking, marching and hiking
CPT/HCPCS: 70450; 70450-26; 99283-25

== ENCOUNTER 2021-04-08 17:49 | Emergency (ER) | payer MEDICARE, OTHER ==
[2021-04-08] MEDS ORDERED: Sodium Chloride 0.9% 1,000 ML IV ONE ×2 (18:01→19:03)
[2021-04-08] MEDS ORDERED: Ondansetron 4 MG/2 ML SDV IVPUSH ONE (18:02)
--- NOTE | 2021-04-08 18:14 | EDM.PDOC ---
ED HPI GENERAL MEDICAL PROBLEM - General Chief Complaint: Neuro Symptoms/Deficits Stated Complaint: VOMITTING/DIZZINESS Time Seen by Provider: 04/08/21 18:01 Source of Information: Reports: Patient, RN Notes Reviewed History Limitations: Reports: No Limitations - History of Present Illness INITIAL COMMENTS - FREE TEXT/NARRATIVE: Patient is a 75-year-old male who presents to the ER for the evaluation of sudden onset dizziness, nausea and vomiting. Patient notes that he went to have coffee with a friend earlier this afternoon, and then went to a local gas station to get a gallon of milk before going home, and he felt not quite himself. He states that he did go home, and ended up vomiting a few times he has had about 5 or 6 episodes of vomiting since then. States this all happened within the last hour to hour and a half. He has not had any sort of dizziness like this before. States is more of a lightheadedness, but does seem to worsen with positional changes. He is not having any headache, vision changes, fevers or chills, or any sort of abdomen pain, his last known bowel movement was this morning. Not having any hematemesis. Triage nurse did note that he needed help pivoting from his wheelchair to the ER cot. Patient states that he did not have any sort of food that would have been questionable for lunchtime states that all he had was an apple. Primary care provider is Beverley Evangelista. He has not been started on any new medications nor has he had any recent med changes. - Related Data Allergies Allergy/AdvReac Type Severity Reaction Status Date / Time tomato Allergy Severe Swelling Verified 04/08/21 17:59 tree nut Allergy Severe Swelling Verified 04/08/21 17:59 berries AdvReac Severe Mouth Sores Uncoded 04/08/21 17:59 Home Meds: Home Meds Ascorbic Acid [Vitamin C] 1,000 mg PO DAILY 03/01/20 [History] Cetirizine HCl/Pseudoephedrine [ZyrTEC-D] 1 tab PO BID 03/01/20 [History] Tamsulosin HCl [Flomax] 0.4 mg PO DAILY 03/01/20 [History] Simvastatin 5 mg PO DAILY 03/02/20 [History] amLODIPine [Norvasc] 10 mg PO DAILY 03/02/20 [History] Metoclopramide HCl 10 mg PO QID PRN #20 tablet 04/08/21 [Rx] Past Medical History HEENT History: Reports: Impaired Vision Cardiovascular History: Reports: High Cholesterol, Hypertension Gastrointestinal History: Reports: Colon Polyp, GERD, Hemorrhoids Genitourinary History: Reports: Other (See Below) Other Genitourinary History: Urinary Retention. Musculoskeletal History: Reports: Osteoarthritis Other Musculoskeletal History: Back Surgery: cyst removal and bone spur X1 week ago. Open sciatic area by nerve. done february 12 Endocrine/Metabolic History: Reports: Other (See Below) Other Endocrine/Metabolic History: Prediabetes. Dermatologic History: Reports: Other (See Below) Other Dermatologic History: Upper back previous removal site in grown hair. - Past Surgical History HEENT Surgical History: Reports: Oral Surgery Other HEENT Surgeries/Procedures: Saliva gland removed on right side. 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 ED EXAM, NEURO - Physical Exam Exam: See Below Exam Limited By: No Limitations General Appearance: Alert, WD/WN, No Apparent Distress Eye Exam: Bilateral Eye: EOMI, Normal Inspection, PERRL Throat/Mouth: Normal Inspection, Normal Lips, Normal Teeth, Normal Gums, Normal Oropharynx, Normal Voice, No Airway Compromise Head Exam: Atraumatic, Normocephalic Neck: Normal Inspection Respiratory/Chest: No Respiratory Distress, Lungs Clear, Normal Breath Sounds, No Accessory Muscle Use, Chest Non-Tender Cardiovascular: Normal Peripheral Pulses, Regular Rate, Rhythm, No Edema GI/Abdominal: Normal Bowel Sounds, Soft, Non-Tender, No Distention, No Mass Neurological: Alert, Normal Mood/Affect, CN II-XII Intact (grossly), No Motor/Sensory Deficits, Oriented x 3 Extremities: Normal Inspection, Normal Capillary Refill Psychiatric: Normal Affect, Normal Mood Skin Exam: Warm, Dry, Intact, Normal Color, No Rash #1 Interpretation EKG Date: 04/08/21 Time: 18:29 Rhythm: NSR Rate (Beats/Min): 71 [place]: Normal P-Wave: Present QRS: RBBB (IVCD? consider atypical RBBB) ST-T: Normal QT: Normal Comparison: NA - No Prior EKG EKG Interpretation Comments: No obvious ischemia or acute ST changes noted, reviewed by myself and Dr. Coronel. He did appreciate the IVCD, small Q waves and T wave abnormalities but no acute ischemic change. Course - Vital Signs Last Recorded V/S: Last Vital Signs Temp 96.4 F L 04/08/21 17:57 Pulse 77 04/08/21 17:57 Resp 16 04/08/21 17:57 BP 135/79 04/08/21 17:57 Pulse Ox 99 04/08/21 17:57 - Orders/Labs/Meds Orders: Active Orders 24 hr Category Date Time Status Abdomen 2V AP Flat Upright [CR] Stat Exams 04/08/21 18:24 Taken Labs: Laboratory Tests 04/08/21 04/08/21 04/08/21 Range/Units 18:00 18:00 18:00 WBC 14.96 H (4.23-9.07) K/mm3 RBC 4.44 L (4.63-6.08) M/mm3 Hgb 13.7 (13.7-17.5) gm/dl Hct 41.0 (40.1-51.0) % MCV 92.3 H (79.0-92.2) fl MCH 30.9 (25.7-32.2) pg MCHC 33.4 (32.2-35.5) g/dl RDW Std Deviation 48.7 H (35.1-43.9) fL Plt Count 237 (163-337) K/mm3 MPV 10.6 (9.4-12.3) fl Neut % (Auto) 44.6 (34.0-67.9) % Lymph % (Auto) 42.7 (21.8-53.1) % Stewart % (Auto) 9.6 (5.3-12.2) % Eos % (Auto) 2.5 (0.8-7.0) Baso % (Auto) 0.3 (0.1-1.2) % Neut # (Auto) 6.67 H (1.78-5.38) K/mm3 Lymph # (Auto) 6.39 H (1.32-3.57) K/mm3 Stewart # (Auto) 1.44 H (0.30-0.82) K/mm3 Eos # (Auto) 0.37 (0.04-0.54) K/mm3 Baso # (Auto) 0.05 (0.01-0.08) K/mm3 Manual Slide Review Abnormal smear Puncture Site Rt radial ABG pH 7.43 (7.35-7.45) ABG pCO2 35.0 (35.0-45.0) mmHg ABG pO2 70.0 L (80.0-100.0) mmHg ABG HCO3 22.5 (22.0-26.0) meq/L ABG O2 Saturation 95.2 L (96.0-97.0) % ABG Base Excess -0.9 (-2-2.0) Jai Test Positive O2 Delivery Device Room air Sodium 141 (136-145) mEq/L Potassium 3.5 (3.5-5.1) mEq/L Chloride 107 (98-107) mEq/L Carbon Dioxide 24 (21-32) mEq/L Anion Gap 13.5 (5-15) BUN 21 H (7-18) mg/dL Creatinine 1.1 (0.7-1.3) mg/dL Est Cr Clr Drug Dosing 64.57 mL/min Estimated GFR (MDRD) > 60 (>60) mL/min BUN/Creatinine Ratio 19.1 H (14-18) Glucose 178 H (70-99) mg/dL Calcium 9.6 (8.5-10.1) mg/dL Total Bilirubin 0.3 (0.2-1.0) mg/dL AST 18 (15-37) U/L ALT 37 (16-63) U/L Alkaline Phosphatase 67 (46-116) U/L Troponin I (0.00-0.056) ng/mL Total Protein 7.4 (6.4-8.2) g/dl Albumin 3.7 (3.4-5.0) g/dl Globulin 3.7 gm/dL Albumin/Globulin Ratio 1.0 (1-2) /23/21 Range/Units 18:00 WBC (4.23-9.07) K/mm3 RBC (4.63-6.08) M/mm3 Hgb (13.7-17.5) gm/dl Hct (40.1-51.0) % MCV (79.0-92.2) fl MCH (25.7-32.2) pg MCHC (32.2-35.5) g/dl RDW Std Deviation (35.1-43.9) fL Plt Count (163-337) K/mm3 MPV (9.4-12.3) fl Neut % (Auto) (34.0-67.9) % Lymph % (Auto) (21.8-53.1) % Stewart % (Auto) (5.3-12.2) % Eos % (Auto) (0.8-7.0) Baso % (Auto) (0.1-1.2) % Neut # (Auto) (1.78-5.38) K/mm3 Lymph # (Auto) (1.32-3.57) K/mm3 Stewart # (Auto) (0.30-0.82) K/mm3 Eos # (Auto) (0.04-0.54) K/mm3 Baso # (Auto) (0.01-0.08) K/mm3 Manual Slide Review Puncture Site ABG pH (7.35-7.45) ABG pCO2 (35.0-45.0) mmHg ABG pO2 (80.0-100.0) mmHg ABG HCO3 (22.0-26.0) meq/L ABG O2 Saturation (96.0-97.0) % ABG Base Excess (-2-2.0) Jai Test O2 Delivery Device Sodium (136-145) mEq/L Potassium (3.5-5.1) mEq/L Chloride (98-107) mEq/L Carbon Dioxide (21-32) mEq/L Anion Gap (5-15) BUN (7-18) mg/dL Creatinine (0.7-1.3) mg/dL Est Cr Clr Drug Dosing mL/min Estimated GFR (MDRD) (>60) mL/min BUN/Creatinine Ratio (14-18) Glucose (70-99) mg/dL Calcium (8.5-10.1) mg/dL Total Bilirubin (0.2-1.0) mg/dL AST (15-37) U/L ALT (16-63) U/L Alkaline Phosphatase (46-116) U/L Troponin I < 0.017 (0.00-0.056) ng/mL Total Protein (6.4-8.2) g/dl Albumin (3.4-5.0) g/dl Globulin gm/dL Albumin/Globulin Ratio (1-2) Meds: Medications Discontinued Medications Generic Name Dose Route Start Last Admin Trade Name Freq PRN Reason Stop Dose Admin Sodium Chloride 1,000 mls @ 999 mls/hr 04/08/21 18:01 04/08/21 18:06 Normal Saline IV 04/08/21 19:01 999 mls/hr ONETIME ONE Administration Sodium Chloride 1,000 mls @ 999 mls/hr 04/08/21 19:03 04/08/21 19:10 Normal Saline IV 04/08/21 20:03 999 mls/hr ONETIME ONE Administration Meclizine HCl 25 mg 04/08/21 18:01 04/08/21 18:06 Meclizine 25 Mg Tab.Chew PO 04/08/21 18:02 25 mg ONETIME ONE Administration Metoclopramide HCl 10 mg 04/08/21 19:03 04/08/21 19:10 Metoclopramide 10 Mg/2 Ml Sdv IVPUSH 04/08/21 19:04 10 mg ONETIME ONE Administration Ondansetron HCl 4 mg 04/08/21 18:02 04/08/21 18:06 Ondansetron 4 Mg/2 Ml Sdv IVPUSH 04/08/21 18:03 4 mg ONETIME ONE Administration - Re-Assessments/Exams Free Text/Narrative Re-Assessment/Exam: 04/08/21 18:12 Patient presents to the ER for his sudden onset dizziness, with nausea and vomiting. Patient does appear to be overly nauseous at initial time of exam, have ordered fluids, Zofran, basic labs for evaluation. This could be an intense case of vertigo, have also ordered some meclizine to see if this helps relieve some of the dizziness/nausea. 04/08/21 18:40 Was made aware by nursing, patient's O2 saturations did drop down into the low 80s high 70s percent, she did put 2 L of oxygen on and his O2 sats did improve to 98%. We will go ahead and get room air blood gases, EKG, troponin, and a flat and upright abdomen for further investigation. EKG was reviewed by myself and Dr. Coronel, shows sinus rhythm with IVCD at a rate of 71, Dr. Coronel did appreciate a small Q wave and T wave abnormalities. 04/08/21 18:57 Labs have resulted, patient CBC is impressive for a white cell count elevated at 14.96 but 44% neutrophils and 0 bands noted on the auto differential. ABG is unremarkable. Metabolic panel also is unremarkable and troponin is undetectably low. Patient has gone to radiology for abdominal imaging. We will reassess him at bedside after images have been reviewed. 04/08/21 19:14 I did go in and talk with the patient, regarding his labs. The patient's abdomen x-rays have been completed, but has not been sent through to PACS, so I am not been able to review them yet. He notes that his nausea and dizziness is not much better, will try 10 mg Reglan and another IV bolus of fluids to see if this helps. 04/08/21 19:19 Was just told by night nursing staff, that the patient refused the abdomen x- rays, as he could not lay flat. We will try to see if he will go back for the x-rays after the Reglan has been given time to work. 04/08/21 20:17 Reglan did seem to help relieve his nausea and dizziness symptoms. Departure - Departure Time of Disposition: 20:19 Disposition: Home, Self-Care 01 Condition: Good Clinical Impression: Vertigo - Discharge Information *PRESCRIPTION DRUG MONITORING PROGRAM REVIEWED*: No *COPY OF PRESCRIPTION DRUG MONITORING REPORT IN PATIENT ROE: No Prescriptions: Metoclopramide HCl 10 mg PO QID PRN #20 tablet PRN Reason: Nausea Instructions: Vertigo, [id number] Referrals: Beverley Evangelista PA-C [Primary Care Provider] - Forms: ED Department Discharge Additional Instructions: You were evaluated in the ER today for your dizziness/vertigo/nausea/vomiting. You were given some IV medications and IV fluid in the ER and this seemed to help relieve most your symptoms. Laboratory evaluation, EKG were all within normal limits as well, your abdomen x-ray did demonstrate quite a bit of stool throughout your colon, if you are not already taking a stool softener, please think about incorporating this in your daily regimen to help promote regular bowel health and bowel movements. You were given a prescription for Reglan, you will need to take 1 tablet every 6 hours for ongoing nausea/dizziness. Please note this medication can make you quite sleepy and tired, highly and strongly recommend you go home, rest and relax throughout the weekend and try not to do a lot of strenuous activity. When you make position changes, please do so with caution take an extra few seco nds to go from a sitting to standing position, and when you are moving around, please move with caution. This medication was electronically sent to the [place] [facility] located [facility] the [employer]. It may also not be a bad idea to use a cane or a walker when you are feeling a little bit dizzy, to help prevent any sort of falls. Highly recommend you follow-up with your regular care provider, sometime early next week to re-evaluate your symptoms and make sure that you are getting better as expected. Do not hesitate to return to the ER at any time if symptoms change or worsen. Sepsis Event Note (ED) - Evaluation Sepsis Screening Result: No Definite Risk - Focused Exam Vital Signs: Vital Signs Temp Pulse Resp BP Pulse Ox 04/08/21 17:57 96.4 F L 77 16 135/79 99 - My Orders Last 24 Hours: My Active Orders 04/08/21 18:24 Abdomen 2V AP Flat Upright [CR] Stat - Assessment/Plan Last 24 Hours: My Active Orders 04/08/21 18:24 Abdomen 2V AP Flat Upright [CR] Stat
[2021-04-08] MEDS ORDERED: Metoclopramide 10 MG/2 ML SDV IVPUSH ONE (19:03)
--- NOTE | 2021-04-09 11:51 | CR ---
Abdomen: Supine and upright views of the abdomen were obtained. Comparison: No prior abdominal x-rays available, prior CT abdomen and pelvis study of 03/01/20 is available. Vascular calcification is seen. Mild degenerative change is noted within the spine. Minimal increased stool is noted throughout the colon. Bowel gas pattern is otherwise unremarkable. No free air is seen. Impression: 1. Findings as noted above. 2. Nothing acute is seen. Diagnostic code #2
== END 2021-04-08 20:34 | disposition home or self-care (01) ==
LOC: JD.ED 17:49
DX: R42 Dizziness and giddiness (principal); E78.00 Pure hypercholesterolemia, unspecified; I10 Essential (primary) hypertension; Z91.09 Other allergy status, other than to drugs and biological substances; Z91.010 Allergy to peanuts; Z91.018 Allergy to other foods; Z72.0 Tobacco use
CPT/HCPCS: 36415; 36600; 74019; 80053; 82803; 84484; 85025; 93005; 96374; 96375; 99284; A9270; J2405; J2765; J7030; 93010

== ENCOUNTER 2022-03-16 21:39 | Emergency (ER) | payer MEDICARE, OTHER ==
[2022-03-16] MEDS ORDERED: Cephalexin 500 MG Cap PO ONE ×2 (22:56→22:57)
== END 2022-03-16 23:04 | disposition home or self-care (01) ==
LOC: JD.ED 21:39
DX: L76.34 Postprocedural seroma of skin and subcutaneous tissue following other procedure (principal); E78.00 Pure hypercholesterolemia, unspecified; I10 Essential (primary) hypertension; K21.9 Gastro-esophageal reflux disease without esophagitis; Z91.018 Allergy to other foods; Z79.899 Other long term (current) drug therapy
CPT/HCPCS: 87070; 87075; 87205; 99283; A9270-GY

== ENCOUNTER 2023-08-16 13:42 | Day surgery (SDC) | payer MEDICARE, OTHER ==
[~2023-08-16 13:42] MED LIST: EPINEPHrine 1 MG/ML SDV ONE; Lidocaine 1% 10 ML MDV ONE; Proparacaine 0.5% Ophth Soln 15 ML Bottle EYELF ONE
[2023-08-16] MEDS ORDERED: Erythromycin Base 0.5% Ophth Oint 1 GM Tube ONE (14:21)
[2023-08-16] MEDS ORDERED: Propofol 200 MG/20 ML SDV ONE (14:30)
[2023-08-16] MEDS ORDERED: Lidocaine 1% 2 ML ONE (14:31)
[2023-08-16] MEDS ORDERED: Midazolam 1 MG/ML 2 ML SDV ONE (14:48)
== END 2023-08-16 16:15 | disposition home or self-care (01) ==
LOC: JD.SDS 13:42
PROVIDERS: ATTEND Ophthalmology
DX: H02.045 Spastic entropion of left lower eyelid (principal); I10 Essential (primary) hypertension; E11.9 Type 2 diabetes mellitus without complications; J45.909 Unspecified asthma, uncomplicated; E78.00 Pure hypercholesterolemia, unspecified; Z79.899 Other long term (current) drug therapy; Z98.890 Other specified postprocedural states; Z91.018 Allergy to other foods
CPT/HCPCS: 15820; A9270; J0171; J2250; J2704; 00103; 99100; J3490

== ENCOUNTER 2024-06-09 07:43 | Day surgery (SDC) | payer MEDICARE, OTHER ==
[~2024-06-09 07:43] MED LIST changes: +Dexamethasone 4 MG/ML 5 ML MDV ONE; -Lidocaine 1% 10 ML MDV ONE; +Lidocaine 1% 5 ML VIAL ONE; +Midazolam 1 MG/ML 2 ML SDV ONE; -Proparacaine 0.5% Ophth Soln 15 ML Bottle EYELF ONE; +Propofol 200 MG/20 ML SDV ONE; +Ropivacaine 0.5% 5 MG/ML 30 ML SDV ONE; +Sodium Chloride 0.9% 10 ML Syringe FLUSH PRN; +Sodium Chloride 0.9% 10 ML Syringe FLUSH SCH; +ceFAZolin 2 GM Vial ONE; +dexmedeTOMIDine HCl 200 MCG/2 ML SDV ONE; +fentaNYL 100 MCG/2 ML SDV ONE
[2024-06-09] MEDS: Lactated Ringers 1,000 ML IV SCH (08:15)
[2024-06-09] MEDS ORDERED: Ketorolac 15 MG/ML SDV ONE (09:00)
[2024-06-09] MEDS ORDERED: Lactated Ringers 1,000 ML ONE (09:17)
[2024-06-09] MEDS ORDERED: ePHEDrine 50 MG/ML SDV ONE (09:36)
[2024-06-09] MEDS ORDERED: Propofol 200 MG/20 ML SDV ONE (09:47)
[2024-06-09] MEDS ORDERED: Phenylephrine 1% 10 MG/ML SDV ONE (09:54)
[2024-06-09] MEDS: Morphine 8 MG, EPINEPHrine 0.3 MG, Cefuroxime 750 MG, Ketorolac 30 MG, Sodium Chloride ... PRN (10:23)
[2024-06-09] MEDS: Vancomycin 1 GM SDV ONE (10:28)
[2024-06-09] MEDS: Tranexamic Acid 1,000 MG/10 ML Vial ONE (10:28)
[2024-06-09] MEDS ORDERED: Ondansetron 4 MG/2 ML SDV IVPUSH PRN (11:53)
[2024-06-09] MEDS ORDERED: fentaNYL 100 MCG/2 ML SDV IVPUSH PRN (11:53)
[2024-06-09] MEDS ORDERED: HYDROmorphone 0.5 MG/0.5 ML Syringe IVPUSH PRN (11:53)
[2024-06-09] MEDS: Acetaminophen/HYDROcodone 325-5 MG Tab PO PRN (12:07)
== END 2024-06-09 15:10 | disposition home or self-care (01) ==
LOC: JD.SDS 07:43
PROVIDERS: ATTEND Orthopaedic Surgery
DX: M17.12 Unilateral primary osteoarthritis, left knee (principal); J44.9 Chronic obstructive pulmonary disease, unspecified; I10 Essential (primary) hypertension; E78.00 Pure hypercholesterolemia, unspecified; F17.210 Nicotine dependence, cigarettes, uncomplicated; K21.9 Gastro-esophageal reflux disease without esophagitis; Z79.899 Other long term (current) drug therapy
CPT/HCPCS: 0055T; 27447; 64447; 73560; 97110; 97161; A9270; C1713; C1776; J0171; J0690; J0697; J1100; J1885; J2250; J2270; J2371; J2704; J2795; J3010; J3370; J7120; 01402; 99100; J3490

== ENCOUNTER 2024-09-04 17:09 | Emergency (ER) | payer MEDICARE, OTHER ==
[2024-09-04] MEDS: Acetaminophen 325 MG Tab ONE (20:18)
[2024-09-05] MEDS: Acetaminophen 325 MG Tab PO ONE (01:15)
== END 2024-09-04 20:32 | disposition home or self-care (01) ==
LOC: JD.ED 17:09
DX: M25.562 Pain in left knee (principal); I10 Essential (primary) hypertension; E78.00 Pure hypercholesterolemia, unspecified; J44.9 Chronic obstructive pulmonary disease, unspecified; Z90.49 Acquired absence of other specified parts of digestive tract; Z79.899 Other long term (current) drug therapy; Z79.82 Long term (current) use of aspirin; Z79.84 Long term (current) use of oral hypoglycemic drugs; Z91.018 Allergy to other foods; W00.0XXA Fall on same level due to ice and snow, initial encounter
CPT/HCPCS: 73562; 99283; A9270

== ENCOUNTER 2024-09-05 16:25 | Observation (INO) | payer MEDICARE, OTHER ==
[2024-09-05 17:16] LABS: APPEARANCE,URINE CLEAR (Clear); BILIRUBIN,URINE NEGATIVE (Negative); COLOR,URINE YELLOW (Yellow); GLUCOSE,URINE NEGATIVE (Negative); KETONES,URINE NEGATIVE (Negative); LEUKOCYTE ESTERASE,URINE NEGATIVE (Negative); NITRITE,URINE NEGATIVE (Negative); OCCULT BLOOD,URINE NEGATIVE (Negative); PROTEIN,URINE NEGATIVE (Negative); UROBILINOGEN,URINE 0.2 (0.2-1.0)
[2024-09-05 17:28] LABS: BASOPHILS ABSOLUTE AUTO 0.1 K/mm3 (0.0-0.2); BASOPHILS PERCENT AUTO 0.8 % (0.0-1.0); EOSINOPHILS ABSOLUTE AUTO 0.2 K/mm3 (0.0-0.4); EOSINOPHILS PERCENT AUTO 2.8 % (0.0-6.0); HEMATOCRIT 38.8 % (42.0-52.0); HEMOGLOBIN 12.9 gm/dl (14.0-18.0); IMMATURE GRAN ABSOLUTE AUTO 0.02 K/mm3 (0.00-0.05); IMMATURE GRAN PERCENT AUTO 0.2 % (0.0-0.4); LYMPHOCYTES PERCENT AUTO 34.9 % (24.0-44.0); MEAN CORPUSCULAR HEMOGLOBIN 31.1 pg (28.0-32.0); MEAN CORPUSCULAR HGB CONC 33.2 g/dl (32.0-36.0); MEAN CORPUSCULAR VOLUME 93.5 fl (83.0-99.0); MEAN PLATELET VOLUME 10.4 fl (9.4-12.4); NEUTROPHILS ABSOLUTE AUTO 4.3 K/mm3 (1.8-7.7); NEUTROPHILS PERCENT AUTO 49.3 % (41.0-71.0); PLATELET COUNT,PLT 218 K/mm3 (150-400); RED BLOOD CELL COUNT 4.15 M/mm3 (4.52-5.90); WHITE BLOOD CELL COUNT,WBC 8.68 K/mm3 (3.9-11.3)
[2024-09-05 17:57] LABS: A/G RATIO 0.9 (1-2); ALBUMIN 3.2 g/dl (3.4-5.0); ANION GAP 9.9 (5-15); BILIRUBIN TOTAL 0.3 mg/dL (0.2-1.0); C-REACTIVE PROTEIN 1.1 mg/dL (<0.30); CALCIUM 9.7 mg/dL (8.5-10.1); EST CRCL DRUG DOSING (CG) 64.67 mL/min; POTASSIUM,K 3.9 mEq/L (3.5-5.1); PROTEIN TOTAL,TP 6.9 g/dl (6.4-8.2)
[2024-09-05] MEDS: Acetaminophen 325 MG Tab PO ONE (19:17)
[2024-09-05] MEDS ORDERED: Ondansetron 4 MG/2 ML SDV IV PRN (20:27)
[2024-09-06] MEDS: Acetaminophen 325 MG Tab PO PRN ×2 (09:07→19:38)
[2024-09-06] MEDS: Enoxaparin 40 MG/0.4 ML Syringe SUBCUT SCH (09:30)
[2024-09-06] MEDS ORDERED: 50% Dextrose in Water 50 ML Syringe IVPUSH PRN (12:58)
[2024-09-06] MEDS ORDERED: Polyethylene Glycol 3350 Powder 17 GM Packet PO PRN (12:59)
[2024-09-06] MEDS ORDERED: Ondansetron 4 MG Tab.DIS PO PRN (12:59)
[2024-09-06] MEDS: Aspirin 81 MG Tab.Chew PO SCH (13:47)
[2024-09-06] MEDS: amLODIPine 10 MG Tab PO SCH (13:47)
[2024-09-06] MEDS: Ascorbic Acid 500 MG Tab PO SCH (13:49)
[2024-09-06] MEDS: Tamsulosin 0.4 MG Cap.ER PO SCH (13:49)
[2024-09-06] MEDS: Pravastatin 20 MG Tab PO SCH (13:50)
[2024-09-06] MEDS: Insulin Lispro 100 Unit/ML 3 ML KwikPen SUBCUT SCH (18:10)
[2024-09-07] MEDS: PSEUDOEPHEDRINE PO SCH (08:21)
[2024-09-07] MEDS: CETIRIZINE HCL PO SCH (08:21)
[2024-09-08] MEDS: Insulin Lispro 100 Unit/ML 3 ML KwikPen SUBCUT SCH (11:15)
== END 2024-09-11 14:28 | disposition home or self-care (01) ==
LOC: JD.ED 16:25 → JD.MS 19:09
PROVIDERS: ADMIT Internal Medicine; ATTEND Student in an Organized Health Care Education/Training Program
DX: M25.562 Pain in left knee (principal); R53.1 Weakness; I10 Essential (primary) hypertension; E78.00 Pure hypercholesterolemia, unspecified; J44.9 Chronic obstructive pulmonary disease, unspecified; K21.9 Gastro-esophageal reflux disease without esophagitis; Z96.652 Presence of left artificial knee joint; N40.0 Benign prostatic hyperplasia without lower urinary tract symptoms; Z79.899 Other long term (current) drug therapy; Z91.018 Allergy to other foods; W19.XXXA Unspecified fall, initial encounter
CPT/HCPCS: 36415; 80053; 81003; 82947; 83735; 85025; 86140; 97110; 97116; 97161; 97530; 99284; A9270; U0002; J3490

== ENCOUNTER 2024-11-21 17:46 | Emergency (ER) | payer MEDICARE, OTHER | END 2024-11-21 21:08 | disposition home or self-care (01) | LOC: JD.ED 17:46 | DX: K59.00 Constipation, unspecified (principal); I10 Essential (primary) hypertension; E78.00 Pure hypercholesterolemia, unspecified; J44.9 Chronic obstructive pulmonary disease, unspecified; E11.9 Type 2 diabetes mellitus without complications; F17.210 Nicotine dependence, cigarettes, uncomplicated; Z91.018 Allergy to other foods; Z91.010 Allergy to peanuts; Z79.899 Other long term (current) drug therapy; Z79.82 Long term (current) use of aspirin; Z79.84 Long term (current) use of oral hypoglycemic drugs | CPT/HCPCS: 74018; 74018-26; 99283 ==